=== PATIENT | male | born 1945 | race Caucasian/White ===

== ENCOUNTER 2019-04-13 11:00 | Outpatient (RCR) | payer SELFPAY | END 2019-05-13 00:01 | LOC: CR 11:00 | PROVIDERS: Family Provider Family Medicine; Referring Provider Internal Medicine Cardiovascular Disease; Visit Provider Internal Medicine Cardiovascular Disease | DX: Z48.812 Encounter for surgical aftercare following surgery on the circulatory system (principal); Z95.2 Presence of prosthetic heart valve ==

== ENCOUNTER 2019-05-21 11:42 | Outpatient (RCR) | payer SELFPAY | END 2019-06-13 23:59 | disposition home or self-care (01) | LOC: CR 11:42 | PROVIDERS: Family Provider Family Medicine; PCP Family Medicine; Referring Provider Internal Medicine Cardiovascular Disease; Visit Provider Internal Medicine Cardiovascular Disease | DX: Z95.2 Presence of prosthetic heart valve (principal) ==

== ENCOUNTER 2019-06-16 13:48 | Outpatient (RCR) | payer SELFPAY | END 2019-07-12 23:59 | disposition home or self-care (01) | LOC: CR 13:48 | PROVIDERS: Family Provider Family Medicine; PCP Family Medicine; Referring Provider Internal Medicine Cardiovascular Disease; Visit Provider Internal Medicine Cardiovascular Disease | DX: Z95.2 Presence of prosthetic heart valve (principal) ==

== ENCOUNTER 2019-07-14 13:03 | Outpatient (RCR) | payer SELFPAY | END 2019-08-12 23:59 | disposition home or self-care (01) | LOC: CR 13:03 | PROVIDERS: Family Provider Family Medicine; PCP Family Medicine; Referring Provider Internal Medicine Cardiovascular Disease; Visit Provider Internal Medicine Cardiovascular Disease | DX: Z95.2 Presence of prosthetic heart valve (principal) ==

== ENCOUNTER 2020-03-23 13:11 | Outpatient (CLI) | payer MEDICARE, BC, SELFPAY ==
--- NOTE | 2020-03-23 13:30 | USCV_ITS ---
Morris Sandoval Age: 75 Gender: M : 1945 Exam Date: 03/23/2020 13:49 Ordering Phys: Lane Hauser MD ([email or web address]) Technologist: Nicholas Lopez Exam Location: [facility] [place] Indication: CCA DIESE Risk Factors: Previous Vascular Surgery: Right Brachial BP: / Left Brachial BP: / Right Left Velocity (cm/s) Spectral Plaque Velocity (cm/s) Spectral Plaque Syst/Diast Broadening Syst/Diast Broadening 84.90/ 20.90 Prox CCA 93.30 / 14.50 81.60/ 17.60 Hetro Mid CCA 88.10 / 18.40 75.00/ 19.80 Hetro Distal CCA 89.40 / 17.10 Hetro 249.00/70.80 Hetro Prox ICA 82.70 / 20.90 Hetro 249.00/63.50 Mid ICA 88.20 / 22.10 Hetro 227.10/73.20 Distal ICA 87.10 / 28.70 86.00 ECA 152.90 2.93 ICA/CCA 0.95 Antegrade Vertebral Antegrade 76.20/ 26.30 cm/s 71.70/ 16.50 cm/s Bi Subclavian Bi 48.60 87.10 FINDINGS Moderate to heavy heterogeneous plaques at the right bifurcation and internal carotid artery. Mild to moderate heterogeneous plaques of the left bifurcation and internal carotid artery Intimal thickening and minimal plaques in the common carotid arteries bilaterally Antegrade flow in the vertebral arteries bilaterally Elevated Doppler flow velocity in the left external carotid artery CONCLUSIONS Moderate to heavy heterogeneous plaques at the right bifurcation and internal carotid artery with velocity elevation consistent with 50-79% (possibly greater than 70% )stenosis. Mild to moderate heterogeneous plaques of the left bifurcation and internal carotid artery. Elevated velocity in the external carotid artery on the left side, suggestive of hemodynamically significant stenosis. Compared to the study from 09/25/2018, there is some worsening of the stenosis on the right side Dr Lane Hauser MD [facility] (Electronically Signed) Final Date: 25 March 2020 18:58 S
== END 2020-03-23 13:12 | disposition home or self-care (01) ==
LOC: US 13:12
PROVIDERS: PCP Family Medicine; Visit Provider Internal Medicine Cardiovascular Disease
DX: I65.23 Occlusion and stenosis of bilateral carotid arteries (principal); Z20.828 Contact with and (suspected) exposure to other viral communicable diseases; R43.0 Anosmia; J06.9 Acute upper respiratory infection, unspecified
CPT/HCPCS: 87635; 93880

== ENCOUNTER 2020-04-19 12:23 | Outpatient (CLI) | payer MEDICARE, BC, SELFPAY ==
--- NOTE | 2020-04-19 13:00 | CT_ITS ---
WS: [id number] CTA NECK TECHNIQUE: Contrast enhanced CTA of the neck with coronal and sagittal reformatted images and maximum intensity projection (MIP) images. NASCET criteria utilized. CLINICAL INFORMATION: I25.10 - Atherosclerotic heart disease of [place] coronary artery without angina pectoris COMPARISON: None. DLP: 912.[address] scans at [facility] use at least one of these dose optimization techniques: automat ed exposure control; mA and/or kV adjustment per patient size (includes targeted exams where dose is matched to clinical indication); or iterative reconstruction. FINDINGS: Fibrosis in the lung apices. Mild mucosal thickening in the ethmoid air cells and frontal e thmoidal recess. No cervical lymphadenopathy. Moderate spondylitic changes cervical spine. Sternotomy . Fibrosis in the lung apices. RIGHT: Right common carotid artery is patent. Calcified atheromatous disease right carotid bulb exten ding into the ICA with stenosis measuring approximately 45%. Right ICA is patent to the skull base. LEFT: Left common carotid artery is patent. Calcified atheromatous plaque left carotid bulb extending into the ICA. Left ICA is patent to the skull base. No significant left ICA stenosis. Right dominant vertebral artery. Both vertebral arteries are patent. Proximal basilar artery is paten t. Partially visualized intracranial [place] is patent. CT/CT angio neck [id number] IMPRESSION: 1. Stenosis right proximal ICA measuring approximately 45%. 2. No significant left ICA stenosis. 3. Right dominant vertebral artery. Both vertebral arteries are patent. 4. Partially visualized intracranial [place] is patent.
[2020-04-19 13:12] LABS: Blood Urea Nitrogen 20 mg/dL (8-23)
[2020-04-19] MEDS: iohexol 350 mg/mL 100 mL Btl IV (13:29)
== END 2020-04-19 12:24 | disposition home or self-care (01) ==
LOC: RADWPI 12:29
PROVIDERS: PCP Family Medicine; Visit Provider Internal Medicine Cardiovascular Disease
DX: I25.10 Atherosclerotic heart disease of native coronary artery without angina pectoris (principal); I50.22 Chronic systolic (congestive) heart failure; I65.23 Occlusion and stenosis of bilateral carotid arteries; Z95.2 Presence of prosthetic heart valve
CPT/HCPCS: 70498; 82565; 84520; Q9967

== ENCOUNTER 2020-09-22 07:54 | Outpatient (CLI) | payer MEDICARE, BC, SELFPAY ==
--- NOTE | 2020-09-22 08:00 | USCV_ITS ---
Morris Sandoval Age: 75 Gender: M : 1945 Exam Date: 09/22/2020 08:17 Ordering Phys: Lane Hauser MD ([email or web address]) Technologist: YANET [place] [facility] [place]: Presence of prosthetic heart valve BP: 110 / 65 HR: 56 Rhythm: Sinus Technical Quality: Very technically difficult study MEASUREMENTS (Male / Female) Normal Values 2D ECHO LV Diastolic Diameter PLAX 4.3 cm 4.2 - 5.9 / 3.9 - 5.3 cm LV Systolic Diameter PLAX 3.1 cm LV Chamber Size 4.5 cm IVS Diastolic Thickness 1.7 cm 0.6 - 1.0 / 0.6 - 0.9 cm IVS Systolic Thickness 2.5 cm LVPW Diastolic Thickness 1.2 cm 0.6 - 1.0 / 0.6 - 0.9 cm LVPW Systolic Thickness 1.2 cm RV Chamber Size 2.8 cm LVOT Diameter 1.8 cm LV Ejection Fraction 2D Teich 55.3 % LA Width 3.5 cm LA Height 5.1 cm RA Width 2.6 cm RA Height 4.2 cm M-MODE LV Diastolic Diameter MM 5.3 cm 4.2 - 5.9 / 3.9 - 5.3 cm LV Systolic Diameter MM 4.3 cm LV Ejection Fraction MM Teich 40.3 % IVS Diastolic Thickness MM 1.9 cm 0.6 - 1.0 / 0.6 - 0.9 cm IVS Systolic Thickness MM 2.0 cm LVPW Diastolic Thickness MM 1.9 cm 0.6 - 1.0 / 0.6 - 0.9 cm LVPW Systolic Thickness MM 2.2 cm MV E Point Septal Separation 0.2 cm DOPPLER AV Peak Velocity 210.3 cm/s LVOT Peak Velocity 116.0 cm/s AV Area Cont Eq vti 1.3 cm squared AV Area Cont Eq pk 1.4 cm squared MV Area PHT 3.5 cm squared Mitral E to A Ratio 2.0 MV E' Velocity 74.0 cm/s Mitral E to MV E' Ratio 18.1 Mitral E to LV E' Lateral Ratio 14.2 Mitral E to LV E' Septal Ratio 25.0 TR Peak Velocity 256.3 cm/s TR Peak Gradient 26.3 mmHg TR Mean Velocity 211.6 cm/s TR Mean Gradient 18.8 mmHg TR Velocity Time Integral 94.3 cm TV Peak E Velocity 62.0 cm/s Right Atrial Pressure 8.0 mmHg Pulmonary Artery Systolic Pressu 34.3 mmHg FINDINGS Left Ventricle Normal LV size with a diminished ejection fraction of 40 to 45%. Diffuse hypokinesia of the septum and anteroseptal segments.Grade III/IV diastolic dysfunction (restrictive filling pattern), severely elevated filling pressures. Right Ventricle The right ventricle is normal in size and function. Right Atrium The right atrium is normal in size. Left Atrium Mildly increased left atrial size. Mitral Valve Thickened mitral valve. Mild mitral annular calcification. Mild mitral valve regurgitation. Aortic Valve Thickened aortic valve. Tricuspid Valve Mild tricuspid regurgitation Pulmonic Valve No gross abnormalities noted Pericardium Normal pericardium without effusion. Aorta Normal ascending aorta dimension. CONCLUSIONS Normal LV size with a diminished ejection fraction of 40 to 45%. Diffuse hypokinesia of the septum and anteroseptal segments.Grade III/IV diastolic dysfunction (restrictive filling pattern), severely elevated filling pressures. Thickened mitral valve. Mild mitral annular calcification. Mild mitral valve regurgitation. Thickened aortic valve. Mild tricuspid regurgitation. Estimated pulmonary artery peak systolic pressure was 31 mmHg There is no pericardial effusion. There are no intracardiac masses. Compared to the study from 06/27/2018, there is some worsening of the LV ejection fraction from 50% to 40- 45%. Dr Lane Hauser MD [facility] (Electronically Signed) Final Date: 22 Sep 2020 10:22 S
== END 2020-09-22 07:55 | disposition home or self-care (01) ==
LOC: US 07:57
PROVIDERS: PCP Family Medicine; Visit Provider Internal Medicine Cardiovascular Disease
DX: Z95.2 Presence of prosthetic heart valve (principal); I08.3 Combined rheumatic disorders of mitral, aortic and tricuspid valves
CPT/HCPCS: 93306

== ENCOUNTER 2020-11-05 06:51 | Outpatient (CLI) | payer MEDICARE, BC, SELFPAY ==
[2020-11-05 07:31] VITALS: BMI 24.3
--- NOTE | 2020-11-05 08:15 | NMCV_ITS ---
NM elan perf SPECT r/s* [id number] Morris Sandoval Age: 75 Gender: M : 1945 Exam Date: 11/05/2020 08:14 Ordering Phys: Lane Hauser MD ([email or web address]) Technologist: CARMEN Renteria Exam Location: [facility] Indications: CHF STRESS TEST Please see separate stress test report in [facility] for full findings IMAGE PROTOCOL Rest/Stress 1 Lexiscan Day Radiopharmaceutical Dose (mCi) Administration Site Administered by Rest: Tc-99m 10.4 IV CARMEN Bill Sestamibi Stress:Tc-99m 32.5 IV CARMEN Bill Sestamijasper Rest: 05-Nov-2020 60 Discovery 630 Stress: 05-Nov-2020 30 Discovery 630 0.4mg Lexiscan. Images obtained in supine and prone position. SPECT RESULTS Technical Quality: Excellent Raw Data Analysis: Normal Image Corrections: No attenuation or motion correction applied Summed Stress Score: 0 Summed Rest Score: 0 Summed Difference Score: 0 PERFUSION FINDINGS Fairly uniform myocardial tracer uptake FUNCTIONAL RESULTS (calculated via Gated SPECT) Stress Image LV EF (%): 72 Stress EDV (mL):94 TID: 1.07 Stress ESV (mL):26 FUNCTIONAL FINDINGS: Segmental wall motion analysis revealing diffuse hypokinesia of the septum IMPRESSIONS 1. Unremarkable myocardial perfusion imaging. 2. Normal LV ejection fraction of 72%. 3. Segmental wall motion analysis revealing diffuse hypokinesia of the septum. 4. Normal LV volume No significant coronary ischemia, based on the above findings Dr Lane Hauser MD [facility] (Electronically Signed) Final Date: 05 November 2020 11:06 S
--- NOTE | 2020-11-05 08:15 | ECG_ITS ---
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 Interpretive Statements NAME OF STUDY: LEXISCAN SESTAMIBI STRESS TEST INDICATION: Chest Pain, PROCEDURE: At the baseline, the EKG revealed sinus bradycardia with a heart rate of 57 bpm. The baseline blood pressure was 146/75 mm Hg with a heart rate of 57 beats/min. Lexiscan was infused over a period of 20 seconds. A total of 0.4 milligrams of Lexiscan was infused. The stress phase was continued for a total of 5 minutes. Heart rate at the end of the stress phase was 68 with a blood pressure 129/72. The EKG at the peak infusion revealed no significant changes. Occasional PVCs were noted during the infusion Sestamibi was injected 20 seconds after the Lexiscan infusion. Blood pressure at the end of the recovery phase was 140/57 with a heart rate of 67 per minute. CONCLUSION: 1. No significant EKG changes with the LexiScan infusion 2. No LexiScan induced chest pain or cardiac arrhythmia 3. Normal blood pressure and heart rate response 4. Sestamibi/sestamibi perfusion scan pending; see separate report. Electronically Signed On 11-05-2020 10:05:[address] Hauser M.D. [id number]
[2020-11-05] MEDS: regadenoson 0.4 Mg/5 ml Syringe IVP (08:50)
[2020-11-05 08:51] VITALS: BP 129/77; PULSE 65
== END 2020-11-05 06:52 | disposition home or self-care (01) ==
LOC: CDL 06:52
PROVIDERS: PCP Family Medicine; Visit Provider Internal Medicine Cardiovascular Disease
DX: R07.9 Chest pain, unspecified (principal); I50.9 Heart failure, unspecified
CPT/HCPCS: 78452; 93017; A9500; J2785

== ENCOUNTER 2020-11-08 10:35 | Outpatient (CLI) | payer MEDICARE, BC, SELFPAY ==
--- NOTE | 2020-11-08 11:00 | USCV_ITS ---
Morris Sandoval Age: 75 Gender: M : 1945 Exam Date: 11/08/2020 11:03 Ordering Phys: Lane Hauser MD ([email or web address]) Technologist: Lona Arroyo Exam Location: [facility] [place] Indication: OCCLUSION AND STENOSIS OF BILATERAL CAROTID ARTERIES Risk Factors: Previous Vascular Surgery: Right Brachial BP: / Left Brachial BP: / Right Left Velocity (cm/s) Spectral Plaque Velocity (cm/s) Spectral Plaque Syst/Diast Broadening Syst/Diast Broadening 86.30/ 18.80 Prox CCA 107.20/ 16.60 87.10/ 19.80 Mid CCA 99.50 / 16.10 88.20/ 18.70 Distal CCA 80.30 / 10.70 186.20/46.75 Prox ICA 61.10 / 13.80 170.70/48.30 Mid ICA 78.90 / 18.70 176.40/45.40 Distal ICA 85.10 / 28.70 72.30 ECA 145.00 2.15 ICA/CCA 0.85 Antegrade Vertebral Antegrade 38.95/ 11.20 cm/s 42.10/ 11.60 cm/s Bi Subclavian Bi 83.70 83.30 FINDINGS Moderate to heavy heterogeneous irregular plaques at the right bifurcation and internal carotid artery Moderate heterogeneous plaques of the left bifurcation and proximal internal carotid artery. Antegrade flow in the vertebral arteries bilaterally. Normal Doppler velocities in the subclavian arteries bilaterally CONCLUSIONS Moderate to heavy heterogeneous irregular plaques at the right bifurcation and internal carotid artery with Doppler features, consistent with 50 to 69% stenosis. Moderate heterogeneous plaques of the left bifurcation and proximal internal carotid artery with Doppler features consistent with less than 50% stenosis. Compared to the study from 03/23/2020, there may not be a significant change Dr Lane Hauser MD [facility] (Electronically Signed) Final Date: 09 November 2020 19:39 S
== END 2020-11-08 10:36 | disposition home or self-care (01) ==
LOC: US 10:36
PROVIDERS: PCP Family Medicine; Visit Provider Internal Medicine Cardiovascular Disease
DX: I65.23 Occlusion and stenosis of bilateral carotid arteries (principal)
CPT/HCPCS: 93880

== ENCOUNTER → 2021-09-07 14:52 | Outpatient (BNVA) | payer MEDICARE, BC, SELFPAY | PROVIDERS: PCP Family Medicine; Visit Provider Internal Medicine Cardiovascular Disease | DX: I25.10 Atherosclerotic heart disease of native coronary artery without angina pectoris (principal); I11.0 Hypertensive heart disease with heart failure; I50.22 Chronic systolic (congestive) heart failure; E78.5 Hyperlipidemia, unspecified; Z95.2 Presence of prosthetic heart valve; I65.23 Occlusion and stenosis of bilateral carotid arteries; Z95.1 Presence of aortocoronary bypass graft; Z87.891 Personal history of nicotine dependence | CPT/HCPCS: 99213; 99214 ==

== ENCOUNTER 2022-02-08 19:03 | Inpatient (IN) | payer MEDICARE, BC, SELFPAY ==
--- NOTE | 2022-02-08 19:07 | XRR_ITS ---
PROCEDURE INFORMATION: Exam: XR Chest Exam date and time: 02/08/2022 7:35 PM Age: 76 years old Clinical indication: Shortness of breath; Prior surgery; Surgery date: 6+ months; Surgery type: Open heart; Additional info: SOB TECHNIQUE: Imaging protocol: Radiologic exam of the chest. Views: 1 view. COMPARISON: CT chest w con* [id number] 02/26/2019 2:25 PM FINDINGS: Lungs: Stable mild hyperinflation of the lungs. No focal consolidation. No pulmonary edema. Pleural spaces: Stable calcified pleural plaques in the right hemithorax. No pleural effusion. No pneumothorax. Heart/Mediastinum: Stable mild enlargement of the cardiac silhouette. Mediastinal contours are unremarkable. Vasculature: Stable vascular calcifications in the aorta. Bones/joints: Poststernotomy changes in the chest. Degenerative changes in the spine and shoulders. Bones are diffusely osteopenic. Osseous findings are stable. XR/XR chest 1V portable [id number] IMPRESSION: 1. No acute cardiopulmonary process. 2. Incidental/nonacute findings are listed in the report.
[2022-02-08 19:08] VITALS: BP 124/71; PULSE 95; RESP 24; TEMP 38.8; O2SAT 95; BMI 23.6
--- NOTE | 2022-02-08 19:14 | ECG_ITS ---
[facility] Test Date: 2022-02-08 Pat Name: Morris Sandoval Department: Room: Gender: Male Lpc: : 1945 Requested By: Sasha Ruiz Order Number: [id number] Costa MD: Michael Swanson M.D. Measurements Intervals [place] Rate: 95 P: 88 MA: 152 QRS: 62 QRSD: 86 T: 50 QT: 326 QTc: 410 Interpretive Statements SINUS RHYTHM NONSPECIFIC T-WAVE ABNORMALITY Compared to ECG 01/09/2018 11:51:56 T-wave abnormality now present Sinus bradycardia no longer present Electronically Signed On 02-09-2022 8:53:46 CDT by Michael Swanson M.D. [id number] f
--- NOTE | 2022-02-08 19:25 | W.ED.SOB ---
HPI - SOB/Dyspnea General: Chief Complaint: Shortness of Breath/Dyspnea Stated Complaint: N/V/Fever Time Seen by Provider: 02/08/22 19:04 Source: patient and EMS Mode of arrival: EMS Limitations: no limitations History of Present Illness: HPI Narrative: 76-year-old male states tonight he is having a fever he is febrile here 102 states he also had nausea along with abdominal pain has had a cough with some mild dyspnea. Patient is in no respiratory distress here pulse ox is 98% on room air. Denies any worsening improving factors. Associated symptoms: Reports abdominal pain and fever(s); Deny chest pain Review of Systems Const: Reports: fever(s) and body aches Eyes: Denies: blurry vision or eye discomfort ENMT: Denies: throat pain or dental pain Card: Denies: chest pain Resp: Reports: non-productive cough GI: Reports: abdominal pain : Denies: dysuria Musc: Denies: neck pain or back pain Skin/Breast: Denies: rash Neuro: Denies: headache(s) Psych: Denies: depression [place]/Lymph: Denies: easy bruising All/Imm: Denies: urticaria PFSH ED PFSH: Medical History Atherosclerotic heart disease of [place] coronary artery without angina pectoris Bilateral carotid artery stenosis Chronic systolic heart failure Congestive heart failure Dyslipidemia (high LDL; low HDL) Hypertension Peripheral neuropathy Surgical History Aortic valve replaced History of cataract extraction Hx of CABG Family History Father CAD (coronary artery disease) Diabetes Sister Cancer Chronic kidney disease (CKD) Diabetes Lung disease Brother Diabetes Mother Lung disease Other Hyperlipidemia Hypertension Denies family history of Clotting disorder Dementia Suicide Anesthesia complication Bleeding disorder Stroke Social History Smoking and tobacco status: former smoker Alcohol intake: never Physical Exam Const: COMMON NORMALS: patient oriented x3 HENMT: COMMON NORMALS: normocephalic and atraumatic HEAD & SCALP: normocephalic and atraumatic Eye: COMMON NORMALS: Equal, round and reactive pupils present and EOMs intact bilaterally PUPIL: Yes Equal, round and reactive pupils present Neck/C-Spine: COMMON NORMALS: full ROM and supple Chest: COMMONS NORMALS: normal inspection of the chest and normal palpation of entire chest wall Resp: COMMON NORMALS: normal respiratory effort, No retractions, No use of accessory muscles and clear to auscultation bilaterally AUSCULTATION: clear to auscultation bilaterally Cardio: COMMON NORMALS: regular rate, regular rhythm and No murmurs present (Cardio) RATE: regular rate RHYTHM: regular rhythm GI: COMMON NORMALS: Normal to inspection, nondistended, normoactive bowel sounds present, Soft to palpation, non-tender and no masses PALPATION: Yes Soft to palpation Extremity: COMMON NORMALS: normal to inspection and full ROM Neuro: COMMON NORMALS: patient oriented x3, moves all extremities and no focal motor deficits Psych: COMMON NORMALS: mental status grossly normal, Normal thought process present and cooperative THOUGHT PROCESS: Normal thought process present Skin: COMMON NORMALS: no rashes or lesions noted and no wounds GENERAL SKIN EXAM: no rashes or lesions noted Course Vital Signs: Vital signs: Vital Signs Temperature 102 F H 02/08/22 19:08 Pulse Rate 95 02/08/22 19:08 Respiratory Rate 24 H 02/08/22 19:08 Blood Pressure 124/71 02/08/22 19:08 Pulse Oximetry 95 02/08/22 19:08 Oxygen Delivery Me thod 02/08/22 19:08 MDM - SOB/Dyspnea Medical Decision Making Patient presents here with fever he does have a leukocytosis as well. CT scan showed no acute abnormalities his lactate is normal urinalysis is normal COVID was negative we will send off a COVID PCR will admit at this time due to his leukocytosis and fever on IV antibiotics to follow blood cultures spoke to hospitalist Dr. Banuelos who will admit. Lab Data : 02/08/22 19:48 02/08/22 19:48 Labs/Radiology: Radiology Impressions Chest X-Ray 02/08/22 19:07 IMPRESSION: 1. No acute cardiopulmonary process. 2. Incidental/nonacute findings are listed in the report. Chest/Abdomen/Pelvis CT 02/08/22 20:26 IMPRESSION: 1. No acute cardiopulmonary process. 2. The patient has a prosthetic aortic valve and ascending aortic graft, stable in position. 3. Incidental/nonacute findings are listed in the report. IMPRESSION: 1. Diffuse, moderate wall thickening of the bladder. In the correct clinical setting, this may suggest cystitis. Recommend correlation with laboratory findings. Alternatively, this may be secondary to chronic outlet obstruction. 2. Incidental/nonacute findings are listed in the report. Laboratory Results WBC 20.4 10^3/uL (4.0-10.0) H 02/08/22 19:48 RBC 4.19 10^6/uL (4.1-5.3) 02/08/22 19:48 Hgb 13.4 g/dL (11.7-16.6) 02/08/22 19:48 Hct 39.9 % (42.0-52.0) L 02/08/22 19:48 MCV 95.2 fl (80-94) H 02/08/22 19:48 MCH 32.0 pg (28.0-34.0) 02/08/22 19:48 MCHC 33.6 g/dL (30.0-36.0) 02/08/22 19:48 RDW 13.2 % (12.1-15.1) 02/08/22 19:48 Plt Count 204 10^3/cmm (130-400) 02/08/22 19:48 MPV 10.0 fL (7.4-10.4) 02/08/22 19:48 Neut % (Auto) 89.3 % 02/08/22 19:48 Lymph % (Auto) 3.4 % 02/08/22 19:48 [place]ison % (Auto) 6.3 % 02/08/22 19:48 Eos % (Auto) 0.4 % 02/08/22 19:48 Baso % (Auto) 0.2 % 02/08/22 19:48 Neut # (Auto) 18.16 10^3/uL (1.8-7.7) H 02/08/22 19:48 Lymph # (Auto) 0.7 10^3/uL (0.8-4.8) L 02/08/22 19:48 Addison # (Auto) 1.3 10^3/uL (0.2-0.9) H 02/08/22 19:48 Eos # (Auto) 0.1 10^3/uL (0.0-0.8) 02/08/22 19:48 Baso # (Auto) 0.1 10^3/uL (0.0-0.1) 02/08/22 19:48 Nucleated RBC % (auto) 0 % 02/08/22 19:48 Nucleated RBCs # 0.0 /100WBC 02/08/22 19:48 Sodium 136 mmol/L (136-145) 02/08/22 19:48 Potassium 4.3 mmol/L (3.5-5.1) 02/08/22 19:48 Chloride 96 mmol/L (98-107) L 02/08/22 19:48 Carbon Dioxide 28 mmol/L (22-29) 02/08/22 19:48 Anion Gap 16.3 (5-19) 02/08/22 19:48 BUN 24 mg/dL (8-23) H 02/08/22 19:48 Creatinine 0.9 mg/dL (0.7-1.2) 02/08/22 19:48 GFR Calculation Not Reportable 02/08/22 19:48 Glucose 128 mg/dL (65-115) H 02/08/22 19:48 Calculated Osmolality 288 mOsm/kg (285-295) 02/08/22 19:48 Lactate 1.4 mmol/L (0.5-2.2) 02/08/22 19:48 Calcium 9.4 mg/dL (8.5-10.5) 02/08/22 19:48 Total Bilirubin 0.3 mg/dL (0.15-1.2) 02/08/22 19:48 AST 25 U/L (0-40) 02/08/22 19:48 ALT 20 U/L (0-41) 02/08/22 19:48 Alkaline Phosphatase 106 U/L (40-130) 02/08/22 19:48 NT-Pro-B Natriuret Pep 406 pg/mL (0-450) 02/08/22 19:48 Total Protein 7.6 g/dL (6.6-8.7) 02/08/22 19:48 Albumin 4.3 g/dL (3.5-5.2) 02/08/22 19:48 Globulin 3.3 g/dL (1.3-4.6) 02/08/22 19:48 Lipase 24 U/L (13-60) 02/08/22 19:48 Urine Color Yellow (Yellow) 02/08/22 20:05 Urine Appearance Clear (CLEAR) 02/08/22 20:05 Urine pH 5.5 (5-7) 02/08/22 20:05 Ur Specific [place] 1.020 (1.005-1.030) 02/08/22 20:05 Urine Protein Negative 02/08/22 20:05 Urine Glucose (UA) Negative (Normal) 02/08/22 20:05 Urine Ketones Negative (Negative) 02/08/22 20:05 Urine Blood Negative (Negative) 02/08/22 20:05 Urine Nitrate Negative 02/08/22 20:05 Urine Bilirubin Negative (Negative) 02/08/22 20:05 Urine Urobilinogen 0.2 mg/dL (Negative) 02/08/22 20:05 Ur Leukocyte Esterase Negative 02/08/22 20:05 SARS-CoV-2 Ag (Rapid) Negative (Negative) 02/08/22 19:07 EKG Data EKG 1: I personally reviewed and interpreted this EKG as follows: EKG Interpretation Date: 02/08/22 EKG interpretation time: 19:14 Interpretation: nsr hr [address] or t wave abnormalities qrs 86 qtc 378 Discharge Plan Discharge Condition: Stable Prescriptions: No Action silodosin [Rapaflo] 8 mg capsule 8 mg PO BEDTIME nitroglycerin [Nitrostat] 0.4 mg tablet, sublingual 0.4 mg SUBLINGUAL Q5M PRN (Reason: Chest Pain) trazodone 100 mg tablet 100 mg PO BEDTIME omeprazole 20 mg capsule,delayed release(DR/EC) 20 mg PO DAILY losartan 100 mg tablet 100 mg PO DAILY furosemide 40 mg tablet 40 mg PO DAILY PRN (Reason: Edema) gabapentin 300 mg capsule 300 mg PO TID potassium chloride 20 mEq tablet,ER particles/crystals 10 meq PO DAILY metoprolol tartrate 50 mg tablet 50 mg PO BID clopidogrel 75 mg tablet 75 mg PO DAILY Qty: 90 3RF atorvastatin 40 mg tablet 40 mg PO BEDTIME cyclobenzaprine 10 mg tablet 10 mg PO DAILY PRN (Reason: Muscle Spasm) ipratropium bromide 21 mcg (0.03 %) spray,non-aerosol 2 spray INTRANASAL TID PRN (Reason: Nasal Congestion) Referrals: Darleen Pina MD [Primary Care Provider] - Coding Level of Care Code 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
[2022-02-08] MEDS: lactated ringers 1,000 ML 999 ML IV ×2 (19:48→21:03)
[2022-02-08 19:52] LABS: SARS Covid-2 Antigen Negative (Negative)
[2022-02-08 20:05] LABS: Basophils # 0.1 10^3/uL (0.0-0.1); Basophils % 0.2 %; Eosinophils # 0.1 10^3/uL (0.0-0.8); Eosinophils % 0.4 %; Hematocrit 39.9 % (42.0-52.0); Hemoglobin 13.4 g/dL (11.7-16.6); Lymphocytes # 0.7 10^3/uL (0.8-4.8); Lymphocytes % 3.4 %; Mean Corpuscular HGB Conc 33.6 g/dL (30.0-36.0); Mean Corpuscular Volume 95.2 fl (80-94); Monocytes # 1.3 10^3/uL (0.2-0.9); Monocytes % 6.3 %; Neutrophils # 18.16 10^3/uL (1.8-7.7); Neutrophils % 89.3 %; Nucleated Red Blood Cells % 0 %; Platelet Count 204 10^3/cmm (130-400); Red Blood Count 4.19 10^6/uL (4.1-5.3); Red Cell Distribution Width 13.2 % (12.1-15.1); White Blood Count 20.4 10^3/uL (4.0-10.0)
--- NOTE | 2022-02-08 20:21 | PC.PHAR ---
medications verified by external med list last filled
[2022-02-08 20:24] LABS: Lactate (Lactic Acid level) 1.4 mmol/L (0.5-2.2)
--- NOTE | 2022-02-08 20:26 | CTR_ITS ---
PROCEDURE INFORMATION: Exam: CT Chest Without Contrast; Diagnostic Exam date and time: 02/08/2022 8:34 PM Age: 76 years old Clinical indication: Fever and nausea; Abdominal pain; Generalized; Cough and dyspnea; Chest pressure; Prior surgery; Surgery date: 6+ months; Surgery type: Cabg, aortic valve replacment; Patient HX: Cough, shob, abd pain, fever, nausea. HX cabg, aortic valve replacement. Ex smoker, no HX of CA TECHNIQUE: Imaging protocol: Diagnostic computed tomography of the chest without contrast. Sagittal and coronal reformatted images were created and reviewed. Radiation optimization: All CT scans at this facility use at least one of these dose optimization techniques: automated exposure control; mA and/or kV adjustment per patient size (includes targeted exams where dose is matched to clinical indication); or iterative reconstruction. COMPARISON: CT chest w con* [id number] 02/26/2019 2:25 PM RADIATION DOSE METRICS: Total DLP (mGy-cm): 587.85 FINDINGS: Limitations: Evaluation of the mediastinum and vasculature is limited without intravenous contrast. Trachea: Tracheobronchial structures are patent. Lungs: Stable linear scarring in the right and left lower lobes. No focal consolidation. No pulmonary edema. No pulmonary parenchymal nodules or masses. Pleural spaces: Bilateral apical pleural thickening and pleural thickening along the posterior left hemithorax is stable. No pleural effusion. No pneumothorax. Few right-sided calcified pleural plaques are stable, this may represent sequela of remote infection versus asbestos related pleural disease. Heart: The patient has a prosthetic aortic valve and ascending aortic graft, stable in position. Stable mild enlargement of the heart. Stable moderate atherosclerotic calcification in the coronary arteries. Esophagus: The esophagus is unremarkable. Mediastinal space: No mediastinal hematoma. No pneumomediastinum. Lymph nodes: No lymphadenopathy. Vasculature: No evidence for aortic aneurysm. Stable mild atherosclerotic calcifications in the visualized arteries. Pulmonary arteries are unremarkable. Pulmonary veins are unremarkable. Bones/joints: Poststernotomy changes in the chest. Degenerative changes in the spine and shoulders. Bones are diffusely osteopenic. Osseous findings are stable. Soft tissues: No acute abnormality in the extrathoracic soft tissues. PROCEDURE INFORMATION: Exam: CT Abdomen And Pelvis Without Contrast Exam date and time: 02/08/2022 8:34 PM Age: 76 years old Clinical indication: Fever and nausea; Abdominal pain; Generalized; Cough and dyspnea; Chest pressure; Prior surgery; Surgery date: 6+ months; Surgery type: Cabg, aortic valve replacment; Patient HX: Cough, shob, abd pain, fever, nausea. HX cabg, aortic valve replacement. Ex smoker, no HX of CA TECHNIQUE: Imaging protocol: Computed tomography of the abdomen and pelvis without contrast. Sagittal and coronal reformatted images were created and reviewed. Radiation optimization: All CT scans at this facility use at least one of these dose optimization techniques: automated exposure control; mA and/or kV adjustment per patient size (includes targeted exams where dose is matched to clinical indication); or iterative reconstruction. COMPARISON: CT chest w con* [id number] 02/26/2019 2:25 PM RADIATION DOSE METRICS: Total DLP (mGy-cm): 587.85 FINDINGS: Limitations: Evaluation of solid organs and vasculature is limited without intravenous contrast. Liver: The liver is unremarkable. Gallbladder and bile ducts: The gallbladder is unremarkable. No biliary ductal dilatation. Pancreas: The pancreas is unremarkable. No pancreatic ductal dilatation. Spleen: Multiple calcified granulomas in the spleen. Adrenal glands: The right and left adrenal glands are unremarkable. Kidneys and ureters: The right and left kidneys are unremarkable. The right and left ureters are unremarkable. Stomach and bowel: No obstruction. No mucosal thickening. Appendix: The appendix is visualized and is unremarkable. No findings to suggest acute appendicitis. Intraperitoneal space: No free intraperitoneal air. No ascites. No loculated fluid collections to suggest an abscess. Vasculature: Moderate atherosclerotic changes in the visualized arteries. No evidence for aortic aneurysm. Lymph nodes: No lymphadenopathy. Urinary bladder: Diffuse, moderate wall thickening of the bladder. Reproductive: Nonspecific parenchymal calcifications in the prostate gland. Bones/joints: Bones are diffusely osteopenic. Moderate degenerative changes at both the right and left hips. Moderate degenerative changes of the right and left sacroiliac joints. Multilevel degenerative changes of varying severity in the visualized spine. Mild spinal canal stenosis at L2-L3, L3-L4, L4-L5, and moderate spinal canal stenosis at L5-S1. Multilevel foraminal stenosis of varying severity in the lumbar spine. Soft tissues: No acute abnormality in the extra-abdominal soft tissues. CT/[place] [id number] IMPRESSION: 1. No acute cardiopulmonary process. 2. The patient has a prosthetic aortic valve and ascending aortic graft, stable in position. 3. Incidental/nonacute findings are listed in the report. IMPRESSION: 1. Diffuse, moderate wall thickening of the bladder. In the correct clinical setting, this may suggest cystitis. Recommend correlation with laboratory findings. Alternatively, this may be secondary to chronic outlet obstruction. 2. Incidental/nonacute findings are listed in the report.
[2022-02-08 20:29] LABS: Add Urine Microscopic? NO; Charge for UA Resulting for Rev
[2022-02-08 20:30] LABS: Bilirubin Urine Negative (Negative); Blood Urine Negative (Negative); Glucose Urine UA Negative (Normal); Ketones Urine Negative (Negative); Leukocyte Esterase Urine Negative; Nitrate Urine Negative; Protein Urine Negative; Urine Appearance Clear (CLEAR); Urine Color Yellow (Yellow); Urobilinogen Urine 0.2 mg/dL (Negative); pH Urine 5.5 (5-7)
[2022-02-08 20:33] LABS: Alanine Aminotransferase 20 U/L (0-41); Albumin Level 4.3 g/dL (3.5-5.2); Alkaline Phosphatase 106 U/L (40-130); Anion Gap 16.3 (5-19); Aspartate Amino Transferase 25 U/L (0-40); Blood Urea Nitrogen 24 mg/dL (8-23); Calcium 9.4 mg/dL (8.5-10.5); Carbon Dioxide 28 mmol/L (22-29); Chloride 96 mmol/L (98-107); Globulin 3.3 g/dL (1.3-4.6); Glucose 128 mg/dL (65-115); Lipase 24 U/L (13-60); NT Pro B Type Natriuretic Pept 406 pg/mL (0-450); Osmolality Calculated 288 mOsm/kg (285-295); Potassium 4.3 mmol/L (3.5-5.1); Sodium 136 mmol/L (136-145); Total Bilirubin 0.3 mg/dL (0.15-1.2); Total Protein 7.6 g/dL (6.6-8.7)
[2022-02-08] MEDS: vancomycin 1,000 MG in sodium chloride 0.9% 250 ML 250 MG IV (21:03)
[2022-02-08] MEDS: aztreonam 2,000 MG in sodium chloride 0.9% (plus) 100 ML 200 MG IV (21:04)
[2022-02-08 21:45] VITALS: BP 119/62; PULSE 92; RESP 22; TEMP 37.2; O2SAT 95
[2022-02-08 21:57] VITALS: BP 95/58; PULSE 91; RESP 16; TEMP 36.8; O2SAT 96
[2022-02-08 22:17] VITALS: BP 119/62; PULSE 92; RESP 22; TEMP 37.2; O2SAT 95
--- NOTE | 2022-02-08 22:44 | PM.HP ---
Providers/Chief Complaint Admitting Physician: Easton Banuelos MD Primary Care Provider: Darleen Pina MD Chief Complaint: N/V/Fever History of Present Illness Morris Sandoval is a 76 year old male with past medical history of hypertension , coronary artery disease status post CABG,HFrEF, Status post aortic valve replacement, was brought in with chief complaint of feeling sick to the stomach, chills, generalized weakness, and shaking, as well as nausea, started later this afternoon, and since then it has progressively worsened. Upon arrival in the ER he was found to be febrile; with noted T-max of 102 Patient denied any chest pain, shortness of the breath, cough, vomiting. He was worked up for above-mentioned complaint: Pertinent imaging studies: CT chest abdpel wo: Diffuse, moderate wall thickening of the bladder.?Stable linear scarring in the right and left lower lobes. No focal consolidation. No pulmonary edema. No pulmonary parenchymal nodules or masses. Pertinent labs: WBC 20.4 H&H: 13/39 , PLT : 204 , serum sodium 136 and potassium 4.3, BUN serum creatinine 24 0.9, serum lactate 1.4, Urinalysis clean COVID PCR negative Review of Systems General: Reports: 10 or more systems reviewed and unremarkable except in HPI and below Const: Reports: chills; Denies: body aches Card: Denies: palpitations, edema, swelling of feet/ankles, dyspnea on exertion, orthopnea or leg pain with exertion Resp: Denies: dyspnea, productive cough, wheezing or pain on inspiration GI: Reports: abdominal pain and nausea; Denies: vomiting, diarrhea or constipation : Denies: flank pain or difficulty urinating Musc: Denies: back pain, extremity pain or extremity swelling Neuro: Denies: headache(s), difficulty walking or confusion Medications/Allergies Home Medications Medication Instructions Recorded Confirmed Last Taken Type losartan 100 mg tablet 100 mg PO DAILY 09/18/19 02/08/22 02/08/22 History nitroglycerin 0.4 mg sublingual 0.4 mg sublingual Q5M PRN Chest 09/18/19 02/08/22 Unknown History tablet (Nitrostat) Pain omeprazole 20 mg capsule,delayed 20 mg PO DAILY 09/18/19 02/08/22 02/08/22 History release silodosin 8 mg capsule (Rapaflo) 8 mg PO BEDTIME 09/18/19 02/08/22 02/07/22 History trazodone 100 mg tablet 100 mg PO BEDTIME 09/18/19 02/08/22 02/07/22 History metoprolol tartrate 50 mg tablet 50 mg PO BID 03/09/21 02/08/22 02/08/22 History potassium chloride 20 mEq 10 meq PO DAILY 03/09/21 02/08/22 Unknown History tablet,extended release(part/cryst) clopidogrel 75 mg tablet 75 mg PO DAILY #90 tabs 08/15/21 02/08/22 02/08/22 Rx furosemide 40 mg tablet 40 mg PO DAILY PRN Edema 09/07/21 02/08/22 Unknown History gabapentin 300 mg capsule 300 mg PO TID 09/07/21 02/08/22 02/08/22 History atorvastatin 40 mg tablet 40 mg PO BEDTIME 02/08/22 02/08/22 02/07/22 History cyclobenzaprine 10 mg tablet 10 mg PO DAILY PRN Muscle Spasm 02/08/22 02/08/22 Unknown History ipratropium bromide 21 mcg (0.03 2 spray intranasal TID PRN Nasal 02/08/22 02/08/22 Unknown History %) nasal spray Congestion Allergies Allergy/AdvReac Type Severity Reaction Status Date / Time Penicillins Allergy unknown Verified 02/08/22 20:14 Sulfa (Sulfonamide Allergy unknown Verified 02/08/22 20:14 Antibiotics) PFSH Acute PFSH: Medical History Atherosclerotic heart disease of [place] coronary artery without angina pectoris Bilateral carotid artery stenosis Chronic systolic heart failure Congestive heart failure Dyslipidemia (high LDL; low HDL) Hypertension Peripheral neuropathy Surgical History Aortic valve replaced History of cataract extraction Hx of CABG Family History Father CAD (coronary artery disease) Diabetes Sister Cancer Chronic kidney disease (CKD) Diabetes Lung disease Brother Diabetes Mother Lung disease Other Hyperlipidemia Hypertension Denies family history of Clotting disorder Dementia Suicide Anesthesia complication Bleeding disorder Stroke Social History Smoking and tobacco status: former smoker Alcohol intake: never Vitals/I&O/Wt Last Vital Signs Temp 99.0 F 02/08/22 22:17 Pulse 92 02/08/22 22:17 Resp 22 H 02/08/22 22:17 BP 119/62 02/08/22 22:17 Pulse Ox 95 02/08/22 22:17 O2 Del Method 02/08/22 21:45 02/08/22 02/08/22 02/08/22 06:59 14:59 22:59 Intake Total 2350 / 2350 Balance 2350 / 2350 Weight last 48 hrs Weight 72.575 kg Physical Exam Const: COMMON NORMALS: patient oriented x3 Resp: COMMON NORMALS: normal respiratory effort, No retractions, No use of accessory muscles and clear to auscultation bilaterally EFFORT & INSPECTION: Yes symmetric chest movement AUSCULTATION: clear to auscultation bilaterally Cardio: COMMON NORMALS: regular rate, regular rhythm, S1 normal heart sound present, S2 normal heart sound present, No gallops present (Cardio), No rub (Cardio) and Peripheral pulses 2+ throughout RATE: regular rate RHYTHM: regular rhythm HEART SOUNDS: S1 normal heart sound present and S2 normal heart sound present PERIPHERAL PULSES: Peripheral pulses 2+ throughout OTHER: Ejection systolic murmur in aortic area GI: COMMON NORMALS: Normal to inspection, nondistended, normoactive bowel sounds present, Soft to palpation, non-tender, No hepatosplenomegaly present and no masses AUSCULTATION: Yes normoactive bowel sounds PALPATION: Yes Soft to palpation and Yes No hepatosplenomegaly present RECTAL EXAM: Yes deferred Extremity: COMMON NORMALS: no clubbing, cyanosis or edema and no pedal edema Neuro: COMMON NORMALS: patient oriented x3 Data : 02/09/22 02:42 02/09/22 02:42 Micro: Microbiology 02/08/22 19:51 Blood Culture - Preliminary Blood SPECIMEN COLLECTED 02/08/22 19:48 Blood Culture - Preliminary Blood SPECIMEN COLLECTED A&P Assessment and plan (1) Hx of CABG: (2) Chronic systolic heart failure: (3) Aortic valve replaced: (4) Hypertension: Qualifiers: Hypertension type: essential hypertension Qualified Code(s): I10 - Essential (primary) hypertension (5) Bilateral carotid artery stenosis: (6) Fever: Plan 76 year old male with past medical history of hypertension , coronary artery disease status post CABG,HFrEF, Status post aortic valve replacement, was brought in with chief complaint of feeling sick to the stomach, chills, generalized weakness, and shaking, as well as nausea, started later this afternoon, and since then it has progressively worsened. Assessment; Fever hypertension coronary artery disease status post CABG, HFrEF currently compensated Status post aortic valve replacement, Plan; Follow blood culture Urine culture Procalcitonin: 2.35 Empirically on broad-spectrum antibiotic Vanco and Primaxin Gentle IV hydration with normal saline Continue Plavix, metoprolol statin We will hold Lasix for now as the patient is dry CODE STATUS: Full code DVT prophylaxis: On Lovenox Attestations Medical Necessity Statement*: Patient needs to be in hospital for management of fever. Need for IV antibiotics.Anticipated length of stay greater than 2 midnights. Time Spent in Patient Care: Greater than 35 minutes (>than 50% of time spent in counselling and/or direct pt care on unit). Coding Level of Care Code Acute Back Digger Operator for [facility] Fwd Exam Detailed Diagnoses Hx of CABG Z95.1 Chronic systolic heart failure I50.22 Aortic valve replaced Z95.2 Hypertension I10 Hypertension type: essential hypertension Bilateral carotid artery stenosis I65.23 Fever R50.9
[2022-02-08 23:08] VITALS: BMI 23.3
[2022-02-08 23:15] LABS: Adenovirus Not Detected (NOT DETECT); Chlamydia Pneumoniae Not Detected (NOT DETECT); Coronavirus 229E,HKU1,NL63,OC4 Not Detected (NOT DETECT); Human Metapneumovirus Not Detected (NOT DETECT); Human Rhinovirus/Enterovirus Not Detected (NOT DETECT); Influenza A Not Detected (NOT DETECT); Influenza A H1 Not Detected (NOT DETECT); Influenza A H1-2009 Not Detected (NOT DETECT); Influenza A H3 Not Detected (NOT DETECT); Influenza B Not Detected (NOT DETECT); Mycoplasma Pneumoniae Not Detected (NOT DETECT); Parainfluenza Virus Type 1 Not Detected (NOT DETECT); Parainfluenza Virus Type 2 Not Detected (NOT DETECT); Parainfluenza Virus Type 3 Not Detected (NOT DETECT); Parainfluenza Virus Type 4 Not Detected (NOT DETECT); Respiratory Syncytial Virus A Not Detected (NOT DETECT); Respiratory Syncytial Virus B Not Detected (NOT DETECT); SARS-COV-2 Not Detected (NOT DETECT)
[2022-02-08 23:27] VITALS: BP 95/58; PULSE 91; RESP 16; TEMP 36.8; O2SAT 96
[2022-02-09] VITALS (8 sets, daily range): BP systolic 99–147; BP diastolic 60–78; PULSE 60–86; RESP 15–21; TEMP 36.3–36.8; O2SAT 90–98
[2022-02-09] MEDS: sodium chloride 0.9% 1,000 ML 75 ML IV (01:11)
[2022-02-09] MEDS: enoxaparin 40 mg/0.4 mL Syringe SUBCUT ×2 (01:12→21:23)
[2022-02-09 03:19] LABS: Basophils # 0.1 10^3/uL (0.0-0.1); Basophils % 0.3 %; Eosinophils # 0.1 10^3/uL (0.0-0.8); Eosinophils % 0.6 %; Hematocrit 34.3 % (42.0-52.0); Hemoglobin 11.3 g/dL (11.7-16.6); Lymphocytes # 2.1 10^3/uL (0.8-4.8); Lymphocytes % 10.8 %; Mean Corpuscular HGB Conc 32.9 g/dL (30.0-36.0); Mean Corpuscular Hemoglobin 31.7 pg (28.0-34.0); Mean Corpuscular Volume 96.1 fl (80-94); Mean Platelet Volume 10.3 fL (7.4-10.4); Monocytes # 1.4 10^3/uL (0.2-0.9); Monocytes % 7.1 %; Neutrophils # 15.66 10^3/uL (1.8-7.7); Neutrophils % 80.7 %; Nucleated Red Blood Cells % 0 %; Platelet Count 182 10^3/cmm (130-400); Red Blood Count 3.57 10^6/uL (4.1-5.3); Red Cell Distribution Width 13.3 % (12.1-15.1); White Blood Count 19.4 10^3/uL (4.0-10.0)
[2022-02-09 03:51] LABS: Anion Gap 13.2 (5-19); Blood Urea Nitrogen 20 mg/dL (8-23); Calcium 8.5 mg/dL (8.5-10.5); Carbon Dioxide 26 mmol/L (22-29); Chloride 104 mmol/L (98-107); Glucose 107 mg/dL (65-115); Osmolality Calculated 291 mOsm/kg (285-295); Potassium 4.2 mmol/L (3.5-5.1); Sodium 139 mmol/L (136-145)
[2022-02-09 03:57] LABS: Procalcitonin 2.35 ng/mL (0-0.5)
[2022-02-09] MEDS: metoprolol tartrate 50 mg Tablet PO ×2 (09:50→17:05)
[2022-02-09] MEDS: pantoprazole DR 40 mg Tablet PO (09:51)
[2022-02-09] MEDS: vancomycin 1,000 MG in sodium chloride 0.9% 250 ML 250 MG IV (09:51)
[2022-02-09] MEDS: clopidogrel 75 mg Tablet PO (09:51)
[2022-02-09] MEDS: gabapentin 300 mg Capsule PO ×3 (09:51→21:07)
--- NOTE | 2022-02-09 13:40 | US_ITS ---
WS: [id number] RIGHT UPPER QUADRANT ULTRASOUND HISTORY: Fever unclear origin, RUQ tender COMPARISON: None available. Liver: 14.8 cm in length. Normal size liver. No bile duct dilatation or mass. Portal Vein: Normal hepatopetal flow with monophasic waveform. Gallbladder: Normally distended gallbladder with no stones or wall thickening. CBD: 0.3 cm Pancreas: Normal size and echogenicity. Right kidney: 9.9 cm in length. Normal size and echogenicity. No hydronephrosis or mass. Aorta and IVC: Unremarkable abdominal aorta and IVC. No ascites. US/US gall bladder [id number] IMPRESSION: Normal RIGHT upper quadrant ultrasound.
--- NOTE | 2022-02-09 13:41 | USCV_ITS ---
Morris Sandoval Age: 76 Gender: M : 1945 Exam Date: 02/09/2022 14:14 Ordering Phys: Cain Gama MD Technologist: Nicholas Lopez Exam Location: [facility] [place] Indication: ao pros BP: 132 / 82 HR: 66 Rhythm: Sinus Technical Quality: Adequate MEASUREMENTS (Male / Female) Normal Values 2D ECHO LV Diastolic Diameter PLAX 3.9 cm 4.2 - 5.9 / 3.9 - 5.3 cm LV Systolic Diameter PLAX 2.2 cm IVS Diastolic Thickness 0.8 cm 0.6 - 1.0 / 0.6 - 0.9 cm IVS Systolic Thickness 1.2 cm LVPW Diastolic Thickness 1.1 cm 0.6 - 1.0 / 0.6 - 0.9 cm LVPW Systolic Thickness 1.3 cm LVOT Diameter 1.7 cm LV Ejection Fraction 2D Teich 76.9 % LV Ejection Fraction MOD 2C 36.0 % LV Ejection Fraction 2C AL 34.0 % LA Diameter 3.4 cm LA Width 4.3 cm IVC Diameter 1.4 cm M-MODE Aortic Annulus Diameter 2.3 cm LA Ao Ratio MM 1.6 MV E Point Septal Separation 0.4 cm DOPPLER AV Peak Velocity 291.0 cm/s LVOT Peak Velocity 83.0 cm/s AV Area Cont Eq vti 0.6 cm squared AV Area Cont Eq pk 0.6 cm squared MV Area PHT 5.0 cm squared Mitral E to A Ratio 1.4 MV E' Velocity 77.5 cm/s Mitral E to MV E' Ratio 16.3 Mitral E to LV E' Lateral Ratio 14.5 Mitral E to LV E' Septal Ratio 18.8 TR Peak Velocity 208.7 cm/s TR Peak Gradient 17.4 mmHg TV Peak E Velocity 160.0 cm/s Right Atrial Pressure 3.0 mmHg Pulmonary Artery Systolic Pressu 20.4 mmHg PV Peak Velocity 104.0 cm/s FINDINGS Left Ventricle Normal left ventricular size and systolic function, EF 55%, with a contrast echo based on MOD. Mild hypokinesia of the LV apical inferior wall segment was noted. Mild concentric left ventricular hypertrophy.Grade III/IV diastolic dysfunction (restrictive filling pattern), severely elevated filling pressures. Right Ventricle The right ventricle is normal in size and function. Right Atrium The right atrium is normal in size. Left Atrium Mildly increased left atrial size. Mitral Valve Trace mitral valve regurgitation. Aortic Valve The bioprosthetic valve in the aortic position appears to be well-seated. The peak velocity at the valve is 2.9 m/s with a peak gradient of 34 and a mean gradient of 16 mmHg. Aortic valve area was calculated to be 0.56 cm squared. The valve index of 0.29. Tricuspid Valve No gross abnormalities noted Pulmonic Valve Pulmonic valve not well visualized. Pericardium Normal pericardium without effusion. Aorta Normal ascending aorta dimension. IVC Normal inferior vena cava. CONCLUSIONS The bioprosthetic valve in the aortic position appears to be well-seated. The peak velocity at the valve is 2.9 m/s with a peak gradient of 34 and a mean gradient of 16 mmHg. Aortic valve area was calculated to be 0.56 cm squared. The valve index of 0.29. Normal left ventricular size and systolic function, EF 55%, with a contrast echo based on MOD. Mild hypokinesia of the LV apical inferior wall segment was noted. Mild concentric left ventricular hypertrophy.Grade III/IV diastolic dysfunction (restrictive filling pattern), severely elevated filling pressures. Trace mitral valve regurgitation. Compared to the study from 09/30/2020, there is some improvement of the LV ejection fraction Dr Lane Hauser MD [facility] (Electronically Signed) Final Date: 10 February 2022 17:23 S
--- NOTE | 2022-02-09 13:41 | PM.PN ---
Subjective Subjective: He states he is overall doing okay. States with fever had very mild headache which has resolved. Denies any photophobia. He is not in pain. Denies shortness of breath or cough. No nausea vomiting or diarrhea. No rash. Small round bruise-like lesion on the distal lateral left middle finger noted on exam, he is not sure how he got it, feels it appeared several days ago, thought he may be pinched the finger somewhere but does not explicitly remember that. Denies other change in the skin. Denies any dental problems, no tooth or gum pain or swelling. Discussed with him and his regarding some findings of diffuse thickening of urinary bladder. He feels sometimes occasionally feels burning sensation with urination, takes medication for BPH, although does not explicitly have issues urinating currently. Discussed results of urinalysis which was entirely unremarkable. He reports some tenderness in right upper quadrant. Vitals/I&O/Wt Last Vital Signs Temp 98.2 F 02/09/22 11:39 Pulse 86 02/09/22 11:39 Resp 21 H 02/09/22 11:39 BP 130/78 02/09/22 11:39 Pulse Ox 90 02/09/22 11:39 O2 Del Method 02/09/22 11:39 02/08/22 02/09/22 02/09/22 22:59 06:59 14:59 Intake Total 2350 / 2350 200 / 2550 470 / 470 Balance 2350 / 2350 200 / 2550 470 / 470 Weight last 48 hrs Weight 73.624 kg Weight 72.575 kg Physical Exam Const: COMMON NORMALS: patient oriented x3 and alert GENERAL APPEARANCE: cooperative ORIENTATION/CONSCIOUSNESS: Yes awake HENMT: COMMON NORMALS: oropharynx normal Neck/C-Spine: COMMON NORMALS: no JVD Resp: COMMON NORMALS: normal respiratory effort and clear to auscultation bilaterally AUSCULTATION: clear to auscultation bilaterally Cardio: COMMON NORMALS: no JVD, regular rhythm, S1 normal heart sound present, S2 normal heart sound present and No murmurs present (Cardio) RHYTHM: regular rhythm HEART SOUNDS: S1 normal heart sound present and S2 normal heart sound present GI: COMMON NORMALS: Normal to inspection, nondistended, normoactive bowel sounds present, Soft to palpation and non-tender PALPATION: Yes Soft to palpation Extremity: COMMON NORMALS: no joint enlargement and no pedal edema Neuro: COMMON NORMALS: patient oriented x3 and moves all extremities SENSORIUM/ORIENTATION: Yes alert Skin: RASHES: no rashes OTHER: Small round bruise-like lesion on the distal lateral left middle finger Data : 02/09/22 02:42 02/09/22 02:42 Micro: Microbiology 02/08/22 19:51 Blood Culture - Preliminary Blood SPECIMEN COLLECTED 02/08/22 19:48 Blood Culture - Preliminary Blood SPECIMEN COLLECTED A&P Assessment and plan (1) Fever: At presentation fever 102 Fahrenheit, unclear cause. No obvious infection so far. With history of bioprosthetic aortic valve. Concern for possible bacteremia. Small round bruise-like lesion on distal lateral surface of left middle finger, he states unsure of how he sustained it. No other lesions suggestive of septic embolic disease apart from this spot. Continue to reassess. Continue empiric antibiotics for now. Follow-up blood culture. Assess TTE. Had mild headache with fever, although this has gone away. No photophobia. Does not appear to have other signs of [place] [employer] infection. No suggestion of pneumonia, UTI, although some diffuse urinary bladder wall thickening, but UA entirely unremarkable. Has some plaque but does not appear to have any dental infection. No cellulitis. Some right upper quadrant tenderness, will assess gallbladder ultrasound, although liver parameters and gallbladder on CT have been unremarkable. COVID-19 PCR panel negative. Procalcitonin elevated. Check CRP. (2) Aortic valve replaced: (3) Hx of CABG: (4) Chronic systolic heart failure: (5) Hypertension: Qualifiers: Hypertension type: essential hypertension Qualified Code(s): I10 - Essential (primary) hypertension (6) Bilateral carotid artery stenosis: Plan Dehydration on presentation: Lasix were held, received gentle IV hydration. Stop IVF. Attestations Medical Necessity Statement*: Continue admission for assessment of management of fever of unclear origin, possible occult infection in the setting of bioprosthetic aortic valve. Coding Level of Care Code Acute Director Of Creative Services for [facility] Fwd Diagnoses Fever R50.9 Aortic valve replaced Z95.2 Hx of CABG Z95.1 Chronic systolic heart failure I50.22 Hypertension I10 Hypertension type: essential hypertension Bilateral carotid artery stenosis I65.23
[2022-02-09 14:24] LABS: C Reactive Protein 13.3 mg/L (0.0-4.9)
[2022-02-09] MEDS: perflutren protein-a microsphr 0.22 mg/mL SDV 3 mL IV (15:05)
--- NOTE | 2022-02-09 18:53 | PC.NURSE ---
Report given to Mariama OWENS at this time
[2022-02-09] MEDS: trazodone 100 mg Tablet PO (21:07)
[2022-02-09] MEDS: atorvastatin 40 mg Tablet PO (21:07)
[2022-02-09] MEDS: vancomycin 1,000 MG in sodium chloride 0.9% 250 ML 200 MG IV (21:10)
[2022-02-10] VITALS (9 sets, daily range): BP systolic 134–158; BP diastolic 73–89; PULSE 57–72; RESP 15–18; TEMP 36.4–36.9; O2SAT 95–98
[2022-02-10 05:11] LABS: Basophils # 0.1 10^3/uL (0.0-0.1); Basophils % 0.6 %; Eosinophils # 0.6 10^3/uL (0.0-0.8); Hematocrit 37.3 % (42.0-52.0); Hemoglobin 12.2 g/dL (11.7-16.6); Lymphocytes # 2.7 10^3/uL (0.8-4.8); Mean Corpuscular HGB Conc 32.7 g/dL (30.0-36.0); Mean Corpuscular Hemoglobin 32.1 pg (28.0-34.0); Mean Corpuscular Volume 98.2 fl (80-94); Mean Platelet Volume 10.1 fL (7.4-10.4); Monocytes # 1.3 10^3/uL (0.2-0.9); Monocytes % 11.5 %; Neutrophils # 6.98 10^3/uL (1.8-7.7); Neutrophils % 59.6 %; Nucleated Red Blood Cells % 0 %; Platelet Count 173 10^3/cmm (130-400); Red Cell Distribution Width 13.5 % (12.1-15.1); White Blood Count 11.7 10^3/uL (4.0-10.0)
[2022-02-10 05:36] LABS: Anion Gap 12.9 (5-19); Blood Urea Nitrogen 18 mg/dL (8-23); Calcium 8.7 mg/dL (8.5-10.5); Carbon Dioxide 24 mmol/L (22-29); Chloride 103 mmol/L (98-107); Glucose 77 mg/dL (65-115); Osmolality Calculated 283 mOsm/kg (285-295); Potassium 3.9 mmol/L (3.5-5.1); Sodium 136 mmol/L (136-145)
[2022-02-10] MEDS: metoprolol tartrate 50 mg Tablet PO ×2 (08:08→17:29)
[2022-02-10] MEDS: gabapentin 300 mg Capsule PO ×3 (08:08→21:10)
[2022-02-10] MEDS: clopidogrel 75 mg Tablet PO (08:08)
[2022-02-10] MEDS: pantoprazole DR 40 mg Tablet PO (08:08)
[2022-02-10] MEDS: vancomycin 1,000 MG in sodium chloride 0.9% 250 ML 200 MG IV ×2 (08:13→21:10)
[2022-02-10 09:05] LABS: Vancomycin Trough 14.9 ug/mL (10-15)
--- NOTE | 2022-02-10 11:50 | PC.CHAP ---
Pastoral Care Encounter/Spiritual Assessment Type of Contact [] Declined plating equipment tender visit [] Patient/Family/Request visit [] Outpatient visit [] Follow-up visit [] Physician referral [] Code/Alert [x] Routine visit [] Staff referral [] Actively dying [] Patient sleeping [] Family support [] [] Out of room [] Palliative care [] [] Receiving care in room [] Pre-surgical visit [] Trauma [] Long length of stay [] ICU visit [] Other: Relational/Emotional Strength x[x] Patient feels connected with others/family/visitors/staff [] Distress [] Loneliness/isolation [] Abandonment Spirituality of Patient [x] Person of Sangita [x] Attends Pentecostal of their Sangita [x] Believes in Prayer [x] Reads Bible or Hoahaoism materials [] There are Spiritual issues to be addressed Matrix Inspector Interventions []x Prayer []x Active listening [x] Non-anxious presence [x] Spiritual/emotional support [x] Crisis/trauma care [] Spiritual counseling [] Bereavement support [] Provided bereavement packet [] Provided Bible/devotional materials [] Provided toy/stuffed animal, coloring book to patient or family member [] Provided Communion [] Anointing/[place]xton [] Salvation [] Completed spiritual assessment [] Other: Impact on Illness or Injury [] Angry [] Fearful [] Anxious [] Often cries [] Exhaustion [] Unable to work [] Unable to attend anglican [] Unable to walk/stand [] Unable to read [] Unable to drive [] Unable to eat/drink [] Unable to sleep [] Unable to be with family [] Patient intubated [] Other: Summary Time spent with patient 15 min
--- NOTE | 2022-02-10 12:11 | PM.PN ---
Subjective Subjective: He is overall doing okay, no headache, no other symptoms. No cough. No nausea vomiting or diarrhea. Abdominal discomfort. Denies any sore throat, although on examination does appear to have a small white/wheeler patch right posterior pharynx. No rash. Otherwise reports feels well. Vitals/I&O/Wt Last Vital Signs Temp 97.7 F 02/10/22 11:47 Pulse 66 02/10/22 11:47 Resp 17 02/10/22 11:47 BP 158/89 02/10/22 11:47 Pulse Ox 97 02/10/22 11:47 O2 Del Method 02/10/22 11:47 02/09/22 02/10/22 02/10/22 22:59 06:59 14:59 Intake Total 1470 / 1940 100 / 2040 240 / 240 Output Total 450 / 450 Balance 1470 / 1940 -350 / 1590 240 / 240 Weight last 48 hrs Weight 78.557 kg Weight 73.624 kg Weight 72.575 kg Physical Exam Const: COMMON NORMALS: patient oriented x3 and alert GENERAL APPEARANCE: cooperative ORIENTATION/CONSCIOUSNESS: Yes awake HENMT: COMMON NORMALS: oropharynx normal Neck/C-Spine: COMMON NORMALS: no JVD Resp: COMMON NORMALS: normal respiratory effort and clear to auscultation bilaterally AUSCULTATION: clear to auscultation bilaterally Cardio: COMMON NORMALS: no JVD, regular rhythm, S1 normal heart sound present, S2 normal heart sound present and No murmurs present (Cardio) RHYTHM: regular rhythm HEART SOUNDS: S1 normal heart sound present and S2 normal heart sound present GI: COMMON NORMALS: Normal to inspection, nondistended, normoactive bowel sounds present, Soft to palpation and non-tender PALPATION: Yes Soft to palpation Extremity: COMMON NORMALS: no joint enlargement and no pedal edema Neuro: COMMON NORMALS: patient oriented x3 and moves all extremities SENSORIUM/ORIENTATION: Yes alert Skin: RASHES: no rashes OTHER: Small round bruise-like lesion on the distal lateral left middle finger Data : 02/10/22 04:53 02/10/22 04:53 Micro: Microbiology 02/09/22 02:00 Urine Culture - Preliminary Urine,Voided 02/10/22 08:20 Blood Culture - Preliminary Blood SPECIMEN COLLECTED 02/10/22 08:20 Blood Culture - Preliminary Blood SPECIMEN COLLECTED 02/08/22 19:51 Blood Culture - Preliminary Blood NEGATIVE TO DATE 02/08/22 19:48 Blood Culture - Preliminary Blood NEGATIVE TO DATE A&P Assessment and plan (1) Fever: Blood cultures so far negative. Repeat blood culture. Small whitish drainage patch posterior pharynx, although denies sore throat. Will assess rapid strep. Monospot. Follow-up pending TTE. Consider JERRI given bioprosthetic aortic valve. Continue empiric antibiotic. No further fever. Leukocytosis subsiding. Did have elevation of CRP, procalcitonin. COVID-19 PCR panel negative. (2) Aortic valve replaced: (3) Hx of CABG: (4) Chronic systolic heart failure: (5) Hypertension: Qualifiers: Hypertension type: essential hypertension Qualified Code(s): I10 - Essential (primary) hypertension (6) Bilateral carotid artery stenosis: Plan Dehydration on presentation: Lasix were held, received gentle IV hydration. Stop IVF. Attestations Medical Necessity Statement*: Continue admission for assessment and management of fever of unclear origin and gentleman with underlying bioprosthetic aortic valve, ascending aortic graft. Coding Level of Care Code Acute Linux Programmer for [facility] Fwd Diagnoses Fever R50.9 Aortic valve replaced Z95.2 Hx of CABG Z95.1 Chronic systolic heart failure I50.22 Hypertension I10 Hypertension type: essential hypertension Bilateral carotid artery stenosis I65.23
[2022-02-10 13:18] LABS: Monoscreen Negative (Negative)
[2022-02-10 17:03] LABS: Rapid Strep A Test Negative (Negative)
[2022-02-10] MEDS: fexofenadine 60 mg Tablet PO (18:09)
[2022-02-10] MEDS: enoxaparin 40 mg/0.4 mL Syringe SUBCUT (21:10)
[2022-02-10] MEDS: atorvastatin 40 mg Tablet PO (21:10)
[2022-02-10] MEDS: trazodone 100 mg Tablet PO (21:10)
[2022-02-11] MEDS: ondansetron 2 mg/ML SDV 2 mL 4 MG IVP (04:32)
[2022-02-11 05:13] LABS: Basophils # 0.1 10^3/uL (0.0-0.1); Basophils % 0.4 %; Eosinophils # 0.5 10^3/uL (0.0-0.8); Eosinophils % 3.9 %; Hematocrit 36.2 % (42.0-52.0); Hemoglobin 12.2 g/dL (11.7-16.6); Lymphocytes # 2.2 10^3/uL (0.8-4.8); Lymphocytes % 16.3 %; Mean Corpuscular HGB Conc 33.7 g/dL (30.0-36.0); Mean Corpuscular Hemoglobin 31.9 pg (28.0-34.0); Mean Corpuscular Volume 94.8 fl (80-94); Mean Platelet Volume 10.5 fL (7.4-10.4); Monocytes # 1.4 10^3/uL (0.2-0.9); Monocytes % 10.4 %; Neutrophils # 9.39 10^3/uL (1.8-7.7); Neutrophils % 68.7 %; Nucleated Red Blood Cells % 0 %; Platelet Count 199 10^3/cmm (130-400); Red Blood Count 3.82 10^6/uL (4.1-5.3); Red Cell Distribution Width 13.2 % (12.1-15.1); White Blood Count 13.7 10^3/uL (4.0-10.0)
[2022-02-11 05:23] VITALS: BP 171/90; PULSE 90; RESP 18; TEMP 36.8; O2SAT 18
[2022-02-11 06:00] VITALS: PULSE 76
[2022-02-11 07:58] VITALS: BP 148/83; PULSE 76; RESP 16; TEMP 36.4; O2SAT 93
[2022-02-11 08:00] VITALS: BP 126/75; PULSE 57; RESP 16; TEMP 36.4
--- NOTE | 2022-02-11 09:44 | PC.SOCIAL ---
Pg 2 IMM Explained to pt Pg 2 IMM. No questions voiced. Provided pt a copy. Initialed, dated, & timed a copy & placed in chart.
[2022-02-11] MEDS: vancomycin 1,000 MG in sodium chloride 0.9% 250 ML 250 MG IV (09:48)
[2022-02-11] MEDS: pantoprazole DR 40 mg Tablet PO (09:49)
[2022-02-11] MEDS: clopidogrel 75 mg Tablet PO (09:49)
[2022-02-11] MEDS: gabapentin 300 mg Capsule PO (09:49)
[2022-02-11] MEDS: metoprolol tartrate 50 mg Tablet PO (09:49)
[2022-02-11 11:20] VITALS: BP 126/75; PULSE 57; RESP 16; TEMP 36.4; O2SAT 96
--- NOTE | 2022-02-11 14:04 | PM.DCS ---
Discharge Providers Date of Admission: 02/08/22 21:58 Date of Discharge: February 11, 2022 Attending Provider at Admission: Easton Banuelos MD Attending Provider at Discharge: Cain Gama Primary Care Provider: Darleen Pina MD Diagnoses at Discharge Discharge Diagnosis (1) Fever: Status: Acute (2) Aortic valve replaced: Status: Acute (3) Hx of CABG: Status: Acute (4) Chronic systolic heart failure: Status: Acute (5) Hypertension: Status: Acute Qualifiers: Hypertension type: essential hypertension Qualified Code(s): I10 - Essential (primary) hypertension (6) Bilateral carotid artery stenosis: Status: Acute Reason for Visit Reason for Visit: N/V/Fever Hospital Course Hospital Course Very pleasant 76-year-old gentleman with history of CAD, CABG, as well as history of aortic valve replacement x2, last valve bioprosthetic, as well as ascending aortic graft, history of CHF, HTN, HLD, peripheral neuropathy, was admitted for assessment management after an episode of chills and fever, on presentation fever up to 102 Fahrenheit, leukocytosis 19.4. He was started empirically on Primaxin and vancomycin. He had no recurrence of fever. Leukocytosis has decreased. He has not developed any additional new symptoms. Unfortunately work-up quite extensive so far has not revealed any obvious source of his illness. His chest x-ray presentation was nonacute. He underwent imaging with CT chest abdomen and pelvis which showed no acute cardiopulmonary process, prosthetic aortic valve and ascending aortic graft stable in position. Diffuse bladder wall thickening of the bladder possible cystitis. However, urinalysis was completely clean, and there was no growth on urine culture. He had had some dyspepsia, initially some tenderness in right upper quadrant, and so had additional assessment with gallbladder ultrasound, although liver parameters remain normal. Ultrasound with normal right upper quadrant. On presentation his CRP is noted elevated at 13.3. Procalcitonin abnormal at 2.35. Blood cultures were collected on presentation and repeated again on 02/10. Both sets of cultures so far have been negative, still preliminary and final's need to be followed up. Small whitish-grayish patch was noted on posterior right pharynx, although he did not have any other obvious signs of pharyngitis, did not complain of any sore throat. Rapid strep was collected and negative. Monospot was checked as well and negative. Initially had a mild headache, but that had resolved and without any recurrence. 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 COVID-19 PCR panel on presentation was negative. He underwent additional assessment with TTE which showed bioprosthetic valve in aortic position appearing well-seated. Peak velocity 2.9 m/s, peak gradient 34, mean gradient 16, aortic valve area 0.56. Valve index 0.29. EF 55% with a contrast based echo. Mild hypokinesia LV apical wall. Grade 3 diastolic function. He did not have any rash, severe joint pain, frequent, pulmonary or renal abnormality suggest vasculitis or other autoimmune condition. On additional questioning his states that several weeks back there was a small tick found on the back of his scrotum, seems he did not admit to it as he was somewhat embarrassed, although he has had no residual rash, had no persistent fever, thrombocytopenia, LFT abnormality or hyponatremia or obvious other symptoms of tickborne illness. Still tick panel was sent out. His lipase was normal. He had no diarrhea or vomiting. Given dyspepsia age and concerning symptoms, will also refer her for additional assessment by EGD. Given diffuse urinary bladder thickening and fever of unclear origin we will additionally refer for assessment with urology. On exam he had no obvious signs of embolic disease, although did have a small bruise-like spot on distal lateral third finger which he was not sure how it appeared there. [place] he may have pinched the finger, although still some concern given underlying aortic valve, aortic graft unclear origin of fever, discussed with him and his concern for possibility of infection of the valve further graft, although blood cultures have remained negative so far. Discussed with him additional closer assessment with JERRI, follow-up with infectious disease specialist, cardiology. Source of his illness has not been determined as of yet. Continue reassessment search for possible trigger of the fever episode in the setting of previously replaced aortic valve ascending . Physical Exam Const: COMMON NORMALS: patient oriented x3 and alert GENERAL APPEARANCE: cooperative ORIENTATION/CONSCIOUSNESS: Yes awake HENMT: COMMON NORMALS: oropharynx normal Neck/C-Spine: COMMON NORMALS: no JVD Resp: COMMON NORMALS: normal respiratory effort and clear to auscultation bilaterally AUSCULTATION: clear to auscultation bilaterally Cardio: COMMON NORMALS: no JVD, regular rhythm, S1 normal heart sound present, S2 normal heart sound present and No murmurs present (Cardio) RHYTHM: regular rhythm HEART SOUNDS: S1 normal heart sound present and S2 normal heart sound present GI: COMMON NORMALS: Normal to inspection, nondistended, normoactive bowel sounds present, Soft to palpation and non-tender PALPATION: Yes Soft to palpation Extremity: COMMON NORMALS: no joint enlargement and no pedal edema Neuro: COMMON NORMALS: patient oriented x3 and moves all extremities SENSORIUM/ORIENTATION: Yes alert Skin: RASHES: no rashes OTHER: Small round bruise-like lesion on the distal lateral left middle finger Discharge Data Studies Completed and Pending Completed Studies During Hospitalization Category Date Time Status CT chest abdomen pelvis [[place] [id number] Cat Scan 02/08/22 20:26 Completed ] Stat XR chest 1V portable [id number] Stat Exams 02/08/22 19:07 Completed CV. echo wo/w contrast [id number] Routine Ultrasound 02/09/22 13:41 Completed US gall bladder [id number] Routine Ultrasound 02/09/22 13:40 Completed Pending at discharge Category Date Time Status Blood Culture Stat Lab 02/08/22 19:51 Results Blood Culture Stat Lab 02/10/22 08:20 Results Comprehensive Metabolic Panel AM LABS Lab 02/12/22 04:00 Ordered Comprehensive Metabolic Panel AM LABS Lab 02/13/22 04:00 Ordered Streptococcus Culture Group A Routine Lab 02/10/22 15:22 Results Tick Panel Routine Lab 02/10/22 04:53 Received Vancomycin Trough Timed Lab 02/11/22 20:00 Ordered Radiology Impressions Chest X-Ray 02/08/22 19:07 IMPRESSION: 1. No acute cardiopulmonary process. 2. Incidental/nonacute findings are listed in the report. Chest/Abdomen/Pelvis CT 02/08/22 20:26 IMPRESSION: 1. No acute cardiopulmonary process. 2. The patient has a prosthetic aortic valve and ascending aortic graft, stable in position. 3. Incidental/nonacute findings are listed in the report. IMPRESSION: 1. Diffuse, moderate wall thickening of the bladder. In the correct clinical setting, this may suggest cystitis. Recommend correlation with laboratory findings. Alternatively, this may be secondary to chronic outlet obstruction. 2. Incidental/nonacute findings are listed in the report. Gallbladder Ultrasound 02/09/22 13:40 IMPRESSION: Normal RIGHT upper quadrant ultrasound. Laboratory Results WBC 13.7 10^3/uL (4.0-10.0) H 02/11/22 04:30 RBC 3.82 10^6/uL (4.1-5.3) L 02/11/22 04:30 Hgb 12.2 g/dL (11.7-16.6) 02/11/22 04:30 Hct 36.2 % (42.0-52.0) L 02/11/22 04:30 MCV 94.8 fl (80-94) H 02/11/22 04:30 MCH 31.9 pg (28.0-34.0) 02/11/22 04:30 MCHC 33.7 g/dL (30.0-36.0) 02/11/22 04:30 RDW 13.2 % (12.1-15.1) 02/11/22 04:30 Plt Count 199 10^3/cmm (130-400) 02/11/22 04:30 MPV 10.5 fL (7.4-10.4) H 02/11/22 04:30 Neut % (Auto) 68.7 % 02/11/22 04:30 Lymph % (Auto) 16.3 % 02/11/22 04:30 Steele % (Auto) 10.4 % 02/11/22 04:30 Eos % (Auto) 3.9 % 02/11/22 04:30 Baso % (Auto) 0.4 % 02/11/22 04:30 Neut # (Auto) 9.39 10^3/uL (1.8-7.7) H 02/11/22 04:30 Lymph # (Auto) 2.2 10^3/uL (0.8-4.8) 02/11/22 04:30 Steele # (Auto) 1.4 10^3/uL (0.2-0.9) H 02/11/22 04:30 Eos # (Auto) 0.5 10^3/uL (0.0-0.8) 02/11/22 04:30 Baso # (Auto) 0.1 10^3/uL (0.0-0.1) 02/11/22 04:30 Nucleated RBC % (auto) 0 % 02/11/22 04:30 Nucleated RBCs # 0.0 /100WBC 02/11/22 04:30 Sodium Cancelled 02/11/22 04:30 Potassium Cancelled 02/11/22 04:30 Chloride Cancelled 02/11/22 04:30 Carbon Dioxide Cancelled 02/11/22 04:30 Anion Gap Cancelled 02/11/22 04:30 BUN Cancelled 02/11/22 04:30 Creatinine Cancelled 02/11/22 04:30 GFR Calculation Cancelled 02/11/22 04:30 Glucose Cancelled 02/11/22 04:30 Calculated Osmolality Cancelled 02/11/22 04:30 Lactate 1.4 mmol/L (0.5-2.2) 02/08/22 19:48 Calcium Cancelled 02/11/22 04:30 Total Bilirubin Cancelled 02/11/22 04:30 AST Cancelled 02/11/22 04:30 ALT Cancelled 02/11/22 04:30 Alkaline Phosphatase Cancelled 02/11/22 04:30 C-Reactive Protein 13.3 mg/L (0.0-4.9) H 02/09/22 02:42 NT-Pro-B Natriuret Pep 406 pg/mL (0-450) 02/08/22 19:48 Total Protein Cancelled 02/11/22 04:30 Albumin Cancelled 02/11/22 04:30 Globulin Cancelled 02/11/22 04:30 Lipase 24 U/L (13-60) 02/08/22 19:48 Procalcitonin 2.35 ng/mL (0-0.5) H 02/09/22 02:42 Urine Color Yellow (Yellow) 02/08/22 20:05 Urine Appearance Clear (CLEAR) 02/08/22 20:05 Urine pH 5.5 (5-7) 02/08/22 20:05 Ur Specific [place] 1.020 (1.005-1.030) 02/08/22 20:05 Urine Protein Negative 02/08/22 20:05 Urine Glucose (UA) Negative (Normal) 02/08/22 20:05 Urine Ketones Negative (Negative) 02/08/22 20:05 Urine Blood Negative (Negative) 02/08/22 20:05 Urine Nitrate Negative 02/08/22 20:05 Urine Bilirubin Negative (Negative) 02/08/22 20:05 Urine Urobilinogen 0.2 mg/dL (Negative) 02/08/22 20:05 Ur Leukocyte Esterase Negative 02/08/22 20:05 Vancomycin Trough 14.9 ug/mL (10-15) 02/10/22 07:55 Coronavirus 229E (PCR) Not detected (NOT DETECT) 02/08/22 21:20 Monoscreen Negative (Negative) 02/10/22 04:53 SARS-CoV-2 (PCR) Not detected (NOT DETECT) 02/08/22 21:20 SARS-CoV-2 Ag (Rapid) Negative (Negative) 02/08/22 19:07 Group A Strep Rapid Negative (Negative) 02/10/22 15:22 Vitals Last Vital Signs Temp 97.6 F 02/11/22 11:20 Pulse 57 L 02/11/22 11:20 Resp 16 02/11/22 11:20 BP 126/75 02/11/22 11:20 Pulse Ox 96 02/11/22 11:20 O2 Del Method 02/11/22 11:20 Discharge Plan Discharge Patient Disposition: Home Condition: Stable Prescriptions: New levofloxacin 750 mg tablet 750 mg PO DAILY 14 Days Qty: 14 0RF doxycycline hyclate 100 mg capsule 100 mg PO BID 14 Days Qty: 28 0RF Continued silodosin [Rapaflo] 8 mg capsule 8 mg PO BEDTIME nitroglycerin [Nitrostat] 0.4 mg tablet, sublingual 0.4 mg SUBLINGUAL Q5M PRN (Reason: Chest Pain) trazodone 100 mg tablet 100 mg PO BEDTIME furosemide 40 mg tablet 40 mg PO DAILY PRN (Reason: Edema) gabapentin 300 mg capsule 300 mg PO TID potassium chloride 20 mEq tablet,ER particles/crystals 10 meq PO DAILY metoprolol tartrate 50 mg tablet 50 mg PO BID clopidogrel 75 mg tablet 75 mg PO DAILY Qty: 90 3RF atorvastatin 40 mg tablet 40 mg PO BEDTIME cyclobenzaprine 10 mg tablet 10 mg PO DAILY PRN (Reason: Muscle Spasm) ipratropium bromide 21 mcg (0.03 %) spray,non-aerosol 2 spray INTRANASAL TID PRN (Reason: Nasal Congestion) Changed losartan 100 mg tablet 50 mg PO DAILY Qty: 1 0RF omeprazole 20 mg capsule,delayed release(DR/EC) 20 mg PO BIDWM Qty: 90 0RF Discharge Orders: Discharge Order (Routine); Ordered 02/11/22 Ordered By: Cain Gama Other Ambulatory Orders: CV. echo transesophageal [id number] (Routine) Timeframe: 3 Days Location: [facility] Ordered By: Cain Gama Referrals: Darleen Pina MD [Primary Care Provider] - 4-7 days (Please follow-up with Dr. Pina on Sunday, Feb.15 at 10:15A.M. If you have any questions or need to reschedule. Please call ) Osvaldo Buck DO [Physician] - 1 week (EGD - dyspepsia, fever of unclear source) Lane Hauser MD [Physician] - 1 week (Fever, aortic graft, valve) Mode Sanchez MD [Physician] - 1 week (Urinary bladder thickening) Marielos Lundberg MD [Hospitalist] - (Soonest available appointment - fever, unclear origin, bioprosthetic aortic valve, aortic graft) Discharge Diet: Cardiac Discharge Activity: Increase activity as tolerated Patient Instructions: Doxycycline (By mouth), Levofloxacin (By mouth), Fever - Adult, CABG (Coronary Artery Bypass Graft) (DC) Activity Restrictions/Additional Instructions: Continue antibiotics until the source of your fever is determined. Please follow-up with your primary doctor follow-up also with infectious disease specialist due to fever episode of unclear origin and due to having bioprosthetic aortic valve as well as ascending aortic graft. Please follow-up for transesophageal echocardiogram to closer assess the aortic valve for any vegetation or perivalvular abscess. Follow-up with cardiology as well. Please have your primary doctor, infectious disease doctor follow-up blood cultures which so far have been negative but are pending. Your antibiotic will also cover for most common possible tickborne illness, please have your primary doctor, infectious disease doctor follow-up tick panel. In case of development of persistent fever, or any other concerning symptoms, return to the hospital. Avoid any NSAIDs, increase omeprazole dose to twice a day, follow-up with surgery for additional assessment of dyspepsia with upper endoscopy. Follow-up with urology regarding diffusely thickened urinary bladder, although no evidence of urinary infection has been seen during his hospitalization. Continue your prostate medication. Discharge Attestations Time Spent in Discharge Care*: greater than 30 min Quality Metrics Clinical Quality Measures [ No reported AMI, CVA or VTE this stay] Coding Level of Care Code Acute Chg FW DC note Diagnoses Fever R50.9 Aortic valve replaced Z95.2 Hx of CABG Z95.1 Chronic systolic heart failure I50.22 Hypertension I10 Hypertension type: essential hypertension Bilateral carotid artery stenosis I65.23
[2022-02-11 15:15] VITALS: BP 126/75; PULSE 57; RESP 16; TEMP 36.4; O2SAT 96
--- NOTE | 2022-02-11 15:25 | PC.NURSE ---
Called prescriptions into [facility] pharmacy in [place].
[2022-02-14 16:37] LABS: Lyme AB Screen <0.90 index
[2022-02-15 17:27] LABS: E. Chaffeensis AB IGG <1:64; E. Chaffeensis AB IGM <1:20
[2022-02-16 17:58] LABS: RMSF IGG NOT DETECTED; RMSF IGM NOT DETECTED
== END 2022-02-11 15:31 | disposition home or self-care (01) | DRG 864 ==
LOC: ER 19:30 → MEDSURG 22:09
PROVIDERS: Admitting Provider Internal Medicine; Emergency Provider Emergency Medicine; PCP Family Medicine; Visit Provider Internal Medicine
DX: R50.9 Fever, unspecified (principal); I50.22 Chronic systolic (congestive) heart failure; I11.0 Hypertensive heart disease with heart failure; I25.10 Atherosclerotic heart disease of native coronary artery without angina pectoris; Z95.1 Presence of aortocoronary bypass graft; Z95.3 Presence of xenogenic heart valve; Z98.890 Other specified postprocedural states; I65.23 Occlusion and stenosis of bilateral carotid arteries; E78.5 Hyperlipidemia, unspecified; G62.9 Polyneuropathy, unspecified; Z87.891 Personal history of nicotine dependence; N40.0 Benign prostatic hyperplasia without lower urinary tract symptoms; R51.9 Headache, unspecified; Z79.02 Long term (current) use of antithrombotics/antiplatelets
CPT/HCPCS: 36415; 71045; 71250; 74176; 76705; 80048; 80053; 80202; 81003; 83605; 83690; 83880; 84145; 85025; 86140; 86308; 86618; 86666; 86757; 87040; 87081; 87086; 87426; 87635; 87880; 93005; 96365; 96367; 96372; 99285; C8929; J0743; J1650; J2405; J3370; J3490; J7030; J7050; Q9956

== ENCOUNTER → 2022-02-15 13:23 | Outpatient (BNVA) | payer MEDICARE, BC, SELFPAY | PROVIDERS: PCP Family Medicine; Visit Provider Nurse Practitioner Family | DX: D72.829 Elevated white blood cell count, unspecified (principal); Z95.2 Presence of prosthetic heart valve | CPT/HCPCS: 99213 ==

== ENCOUNTER → 2022-02-21 10:44 | Outpatient (BNVA) | payer MEDICARE, BC, SELFPAY | PROVIDERS: PCP Family Medicine; Visit Provider Surgery | DX: R10.13 Epigastric pain (principal) | CPT/HCPCS: 99203 ==

== ENCOUNTER 2022-03-03 10:15 | Day surgery (SDC) | payer MEDICARE, BC, SELFPAY ==
[2022-02-28 10:36] VITALS: BMI 23.6
[2022-03-03 10:48] VITALS: BP 168/84; PULSE 57; RESP 18; TEMP 36.6; O2SAT 98
[2022-03-03] MEDS: sodium chloride 0.9% 1,000 ML 30 ML IV (11:05)
--- NOTE | 2022-03-03 11:47 | USCV_ITS ---
Morris Sandoval Age: 77 Gender: M : 1945 Exam Date: 03/03/2022 12:12 Ordering Phys: Lane Hauser MD ([email or web address]) Technologist: BRYAN Exam Location: [facility] [place] Indication: AORTIC VALVE REPLACEMENT BP: 170 / 109 HR: 64 Rhythm: Sinus Technical Quality: Good MEASUREMENTS (Male / Female) Normal Values DOPPLER TR Peak Velocity 256.7 cm/s TR Peak Gradient 26.4 mmHg TR Mean Velocity 204.4 cm/s TR Mean Gradient 17.9 mmHg TR Velocity Time Integral 84.3 cm Medications IV propofol administered with anesthesia service. Please refer to anesthesia report for details Complications None Proc. Components The patient was brought to the JERRI examination room in a fasting state after obtaining an informed consent. The JERRI probe was passed into the posterior pharynx , mid-esophagus, distal esophagus, and gastric fundus. The patient tolerated the procedure well and there were no complications. JERRI was performed at multiple levels. FINDINGS Left Ventricle Mild concentric left ventricular hypertrophy with normal ejection fraction Right Ventricle Possibly normal size ejection fraction Right Atrium No intracavitary masses Left Atrium Mildly dilated with no intracavitary masses LA Appendage Patient with normal size with a slightly diminished contractility IA Septum Appears to be intact with no evidence of any intracardiac shunt, based on color-flow Doppler examination Mitral Valve Mild mitral valve regurgitation. Aortic Valve The bioprosthetic valve in the aortic position appears to be well-seated. No masses or vegetations were noted on the leaflets. The leaflets are minimally thickened. No masses or vegetations. Tricuspid Valve [id number] tricuspid valve regurgitation. Pulmonic Valve No masses or vegetations noted. Pericardium No pericardial effusion. Aorta Normal aortic annulus size. CONCLUSIONS The bioprosthetic valve at the aortic position appears to be well-seated with no masses or vegetations. No intracardiac masses or vegetations noted. Mild to moderate mitral and tricuspid regurgitation. Mildly dilated left atrium. Mild concentric left trickle hypertrophy with ejection fraction of 55% No similar previous studies are available for comparison Dr Lane Hauser MD FAC (Electronically Signed) Final Date: 03 March 2022 15:54 S
--- NOTE | 2022-03-03 11:55 | W.PM.OPSUD ---
Surgery/Procedure H&P Update DATE OF PROCEDURE: March 03, 2022 DATE H&P PERFORMED: 02/15/22 H&P UPDATE INFORMATION: I have reviewed H&P completed within last 30 days, I have examined patient prior to procedure and No changes to prior documentation PREOP DIAGNOSIS: Bioprosthetic aortic valve/unexplained fever/rule out endocarditis PLANNED PROCEDURE: Operation Date: 03/03/22 12:00 Proposed Procedures p JERRI [id number](Not Applicable) - Lane Hauser MD
--- NOTE | 2022-03-03 12:00 | ANES.PREANE2 ---
Pre-Anesthetic Assessment Height/Weight: Height 1.75 m Weight 72.575 kg Temp Pulse Resp BP Pulse Ox O2 Del Method 97.4 F L 59 L 20 H 85/49 99 03/03/22 12:30 03/03/22 12:30 03/03/22 12:30 03/03/22 12:30 03/03/22 12:30 03/03/22 12:30 Preop Diagnosis: Bioprosthetic aortic valve/unexplained fever/rule out endocarditis Operation Date: 03/03/22 12:00 Proposed Procedures p JERRI [id number](Not Applicable) - Lane Hauser MD Familial anesthetic complications: none Was Beta Pia taken within 24 hours: Yes Was Clonidine taken within 24 hours: N/A Last intake: Intake Last Liquid Date 03/02/22 Last Liquid Time 21:00 Last Solid Date 03/02/22 Last Solid Time 18:00 Last Intake: 18:00 Social No alcohol and No tobacco Exam alert and oriented x 3 Airway Submandibular: within normal limits Cervical ROM: within normal limits Mallampati: Class II History/ROS No significant history except as noted Pulmonary None reported CV/HEM Hypertension aortic valve replaced in 2018 None reported Hepatic None reported GI None reported Metabolic Hyperlipidemia [facility] [place] None reported Neuropsych None reported Anesthetic Plan ASA status: 3 Anesthesia: Anesthesia Evaluation and MAC Risk of > 500 ml blood loss (7ml/kg in children): No Medications/Allergies Home Medications Medication Instructions Recorded Confirmed Last Taken Type nitroglycerin 0.4 mg sublingual 0.4 mg sublingual Q5M PRN Chest 09/18/19 03/03/22 Unknown History tablet (Nitrostat) Pain silodosin 8 mg capsule (Rapaflo) 8 mg PO BEDTIME 09/18/19 03/03/22 03/02/22 History trazodone 100 mg tablet 100 mg PO BEDTIME 09/18/19 03/03/22 03/02/22 History metoprolol tartrate 50 mg tablet 50 mg PO BID 03/09/21 03/03/22 03/03/22 History potassium chloride 20 mEq 10 meq PO DAILY PRN with furosemide 03/09/21 03/03/22 Unknown History tablet,extended release(part/cryst) clopidogrel 75 mg tablet 75 mg PO DAILY #90 tabs 08/15/21 03/03/22 03/02/22 Rx furosemide 40 mg tablet 40 mg PO DAILY PRN Edema 09/07/21 03/03/22 Unknown History gabapentin 300 mg capsule 300 mg PO TID 09/07/21 03/03/22 03/03/22 History atorvastatin 40 mg tablet 40 mg PO BEDTIME 02/08/22 03/03/22 03/02/22 History cyclobenzaprine 10 mg tablet 10 mg PO DAILY PRN Muscle Spasm 02/08/22 03/03/22 03/02/22 History ipratropium bromide 21 mcg (0.03 2 spray intranasal TID PRN Nasal 02/08/22 03/03/22 03/03/22 History %) nasal spray Congestion losartan 100 mg tablet 50 mg PO DAILY #1 tab 02/11/22 03/03/22 03/02/22 Rx omeprazole 20 mg capsule,delayed 20 mg PO BID 02/28/22 03/03/22 03/02/22 History release Allergies Allergy/AdvReac Type Severity Reaction Status Date / Time Penicillins Allergy unknown Verified 03/03/22 10:46 Sulfa (Sulfonamide Allergy unknown Verified 03/03/22 10:46 Antibiotics) [facility] Anesthesia Medical History (Updated 02/21/22 @ 11:22 by Osvaldo Buck DO) Atherosclerotic heart disease of [place] coronary artery without angina pectoris Bilateral carotid artery stenosis C. difficile diarrhea Chronic systolic heart failure Congestive heart failure Dyslipidemia (high LDL; low HDL) Hypertension Peripheral neuropathy Surgical History (Updated 02/21/22 @ 11:22 by Osvaldo Buck DO) Aortic valve replaced History of cataract extraction History of colonoscopy Hx of CABG Family History Father CAD (coronary artery disease) Diabetes Sister Cancer Chronic kidney disease (CKD) Diabetes Lung disease Brother Diabetes Mother Lung disease Other Hyperlipidemia Hypertension Denies family history of Clotting disorder Dementia Suicide Anesthesia complication Bleeding disorder Stroke Social History Smoking and tobacco status: never smoked Alcohol intake: never Data Anesthesia Cardiac Studies: Echocardiogram 02/09/22 Echocardiogram Ultrasound 09/22/20 Sestamibi Stress Test (Cardiology) 11/05/20
[2022-03-03 12:30] VITALS: BP 85/49; PULSE 59; RESP 20; TEMP 36.3; O2SAT 99
--- NOTE | 2022-03-03 12:37 | ANE.PACU2 ---
Inpatient post-anesthesia follow up: Airway intact: Yes Vital signs: Temperature 97.4 F Pulse Rate 59 Respiratory Rate 20 Blood Pressure 85/49 Pulse Oximetry 99 Oxygen Delivery Me thod Room Air Oxygen Flow Rate Fraction of Inspir ed Oxygen Hydration adequate: Yes Nausea and vomiting: No Pain level: 1 Mental status: Baseline
[2022-03-03 12:40] VITALS: BP 80/46; PULSE 59; RESP 18; O2SAT 99
[2022-03-03 12:55] VITALS: BP 119/60; PULSE 60; RESP 18; O2SAT 98
[2022-03-03 13:09] VITALS: BP 144/74; PULSE 61; RESP 16; O2SAT 96
[2022-03-03 13:09] LABS: Basophils # 0.1 10^3/uL (0.0-0.1); Basophils % 0.6 %; Eosinophils # 0.3 10^3/uL (0.0-0.8); Eosinophils % 3.7 %; Hematocrit 34.1 % (42.0-52.0); Hemoglobin 11.3 g/dL (11.7-16.6); Lymphocytes # 2.1 10^3/uL (0.8-4.8); Lymphocytes % 26.5 %; Mean Corpuscular HGB Conc 33.1 g/dL (30.0-36.0); Mean Corpuscular Volume 96.6 fl (80-94); Mean Platelet Volume 10.8 fL (7.4-10.4); Monocytes # 0.8 10^3/uL (0.2-0.9); Monocytes % 9.7 %; Neutrophils # 4.64 10^3/uL (1.8-7.7); Neutrophils % 59.1 %; Nucleated Red Blood Cells % 0 %; Platelet Count 175 10^3/cmm (130-400); Red Blood Count 3.53 10^6/uL (4.1-5.3); Red Cell Distribution Width 13.3 % (12.1-15.1); White Blood Count 7.9 10^3/uL (4.0-10.0)
[2022-03-03 13:22] VITALS: BP 152/81; PULSE 60; RESP 16; O2SAT 99
== END 2022-03-03 13:35 | disposition home or self-care (01) ==
PROVIDERS: PCP Family Medicine; Visit Provider Internal Medicine Cardiovascular Disease
PROC: (CPT 93312; principal; 2022-03-03 12:00)
DX: D72.829 Elevated white blood cell count, unspecified (principal); R50.9 Fever, unspecified; Z95.2 Presence of prosthetic heart valve; I11.0 Hypertensive heart disease with heart failure; I50.22 Chronic systolic (congestive) heart failure; E78.5 Hyperlipidemia, unspecified
CPT/HCPCS: 85025; 93312; 93320; 93325; J2704; J7030

== ENCOUNTER → 2022-03-09 14:25 | Outpatient (BNVA) | payer MEDICARE, BC, SELFPAY | PROVIDERS: PCP Family Medicine; Visit Provider Internal Medicine Cardiovascular Disease | DX: R53.83 Other fatigue (principal); I11.0 Hypertensive heart disease with heart failure; I50.22 Chronic systolic (congestive) heart failure; I65.23 Occlusion and stenosis of bilateral carotid arteries; Z95.2 Presence of prosthetic heart valve; I25.10 Atherosclerotic heart disease of native coronary artery without angina pectoris; Z95.1 Presence of aortocoronary bypass graft | CPT/HCPCS: 99214 ==

== ENCOUNTER → 2022-03-15 15:15 | Outpatient (BNVA) | payer MEDICARE, BC, SELFPAY | PROVIDERS: PCP Family Medicine; Visit Provider Urology | DX: N40.1 Benign prostatic hyperplasia with lower urinary tract symptoms (principal); N32.89 Other specified disorders of bladder | CPT/HCPCS: 51798; 52000; 81003; 99213 ==

== ENCOUNTER 2022-03-22 06:51 | Day surgery (SDC) | payer MEDICARE, BC, SELFPAY ==
[2022-03-20 15:15] VITALS: BMI 22.9
[2022-03-22 07:23] VITALS: BP 181/91; PULSE 60; RESP 18; TEMP 36.8; O2SAT 98
[2022-03-22] MEDS: sodium chloride 0.9% 1,000 ML 30 ML IV (07:32)
--- NOTE | 2022-03-22 07:55 | ANES.PREANE2 ---
Pre-Anesthetic Assessment Height/Weight: Height 1.75 m Weight 72.575 kg Temp Pulse Resp BP Pulse Ox O2 Del Method 98.3 F 60 18 181/91 98 03/22/22 07:23 03/22/22 07:23 03/22/22 07:23 03/22/22 07:23 03/22/22 07:23 03/22/22 07:23 Preop Diagnosis: Bioprosthetic aortic valve/unexplained fever/rule out endocarditis Operation Date: 03/22/22 08:30 Proposed Procedures p EGD(Not Applicable) - Osvaldo Buck DO Familial anesthetic complications: none Was Beta Pia taken within 24 hours: N/A Was Clonidine taken within 24 hours: N/A Last intake: Intake Last Liquid Date 03/20/22 Last Liquid Time 20:00 Last Solid Date 03/21/22 Last Solid Time 19:30 Social No tobacco Exam alert and oriented x 3 Airway Submandibular: within normal limits Cervical ROM: within normal limits Mallampati: Class III Dentition: full History/ROS No significant history except as noted Pulmonary None reported CV/HEM Coronary Artery Disease (stents) and Hypertension aortic valve replacement x2 None reported Hepatic None reported GI Gastroesophageal Reflux Disease Metabolic Hyperlipidemia Neuropsych None reported Anesthetic Plan ASA status: 3 Anesthesia: Anesthesia Evaluation and MAC Medications/Allergies Home Medications Medication Instructions Recorded Confirmed Last Taken Type nitroglycerin 0.4 mg sublingual 0.4 mg sublingual Q5M PRN Chest 09/18/19 03/20/22 Unknown History tablet (Nitrostat) Pain silodosin 8 mg capsule (Rapaflo) 8 mg PO BEDTIME 09/18/19 03/20/22 03/02/22 History trazodone 100 mg tablet 100 mg PO BEDTIME 09/18/19 03/20/22 03/02/22 History metoprolol tartrate 50 mg tablet 50 mg PO BID 03/09/21 03/20/22 03/03/22 History potassium chloride 20 mEq 10 meq PO DAILY PRN with furosemide 03/09/21 03/20/22 Unknown History tablet,extended release(part/cryst) clopidogrel 75 mg tablet 75 mg PO DAILY #90 tabs 08/15/21 03/20/22 03/17/22 Rx furosemide 40 mg tablet 40 mg PO DAILY PRN Edema 09/07/21 03/20/22 Unknown History gabapentin 300 mg capsule 300 mg PO TID 09/07/21 03/20/22 03/03/22 History atorvastatin 40 mg tablet 40 mg PO BEDTIME 02/08/22 03/20/22 03/02/22 History cyclobenzaprine 10 mg tablet 10 mg PO DAILY PRN Muscle Spasm 02/08/22 03/20/22 03/02/22 History ipratropium bromide 21 mcg (0.03 2 spray intranasal TID PRN Nasal 02/08/22 03/20/22 03/03/22 History %) nasal spray Congestion losartan 100 mg tablet 50 mg PO DAILY #1 tab 02/11/22 03/20/22 03/02/22 Rx omeprazole 20 mg capsule,delayed 20 mg PO BID 02/28/22 03/20/22 03/02/22 History release Allergies Allergy/AdvReac Type Severity Reaction Status Date / Time Penicillins Allergy unknown Verified 03/15/22 15:33 Sulfa (Sulfonamide Allergy unknown Verified 03/15/22 15:33 Antibiotics) Current Medications Generic Name Dose Route Start Last Admin Trade Name Freq PRN Reason Stop Dose Admin Sodium Chloride 1,000 mls @ 30 mls/hr 03/22/22 07:30 03/22/22 07:32 Sodium Chloride 0.9% IV 03/23/22 07:29 30 mls/hr .Q24H RONI Administration PFSH Anesthesia Medical History Atherosclerotic heart disease of [place] coronary artery without angina pectoris Bilateral carotid artery stenosis BPH loc w urin obs/LUTS C. difficile diarrhea Chronic systolic heart failure Congestive heart failure Dyslipidemia (high LDL; low HDL) Hypertension Peripheral neuropathy Surgical History Aortic valve replaced History of cataract extraction History of colonoscopy Hx of CABG Family History Father , at age 92 CAD (coronary artery disease) Diabetes Sister Cancer Chronic kidney disease (CKD) Diabetes Lung disease Brother Diabetes Mother , at age 72 Lung disease Other Hyperlipidemia Hypertension Denies family history of Clotting disorder Dementia Suicide Anesthesia complication Bleeding disorder Stroke Social History Smoking and tobacco status: never smoked Alcohol intake: never Marital status: Current occupational status: retired History of recent travel: No Data Anesthesia Cardiac Studies: Echocardiogram 02/09/22 Echocardiogram Ultrasound 09/22/20 Transesophageal Echocardiogram 03/03/22 Sestamibi Stress Test (Cardiology) 11/05/20
--- NOTE | 2022-03-22 08:48 | W.PM.OPSUD ---
Surgery/Procedure H&P Update DATE OF PROCEDURE: March 22, 2022 DATE H&P PERFORMED: 02/21/22 PREOP DIAGNOSIS: epigastric pain PLANNED PROCEDURE: Operation Date: 03/22/22 08:30 Proposed Procedures p EGD(Not Applicable) - Osvaldo Buck DO
[2022-03-22 09:05] VITALS: BP 129/67; PULSE 64; RESP 16; TEMP 36.2; O2SAT 98
[2022-03-22 09:14] VITALS: BP 133/71; PULSE 63; RESP 16; O2SAT 97
--- NOTE | 2022-03-22 14:59 | ANE.PACU2 ---
Inpatient post-anesthesia follow up: Airway intact: Yes Vital signs: Temperature 97.1 F Pulse Rate 63 Respiratory Rate 16 Blood Pressure 133/71 Pulse Oximetry 97 Oxygen Delivery Me thod Room Air Oxygen Flow Rate Fraction of Inspir ed Oxygen Hydration adequate: Yes Nausea and vomiting: No Pain level: 1 Mental status: Baseline
== END 2022-03-22 09:47 | disposition home or self-care (01) ==
PROVIDERS: PCP Family Medicine; Visit Provider Surgery
PROC: 0DJ08ZZ Inspection of Upper Intestinal Tract, Via Natural or Artificial Opening Endoscopic (ICD-10-PCS; CPT 43235; principal; 2022-03-22 08:30)
DX: R13.10 Dysphagia, unspecified (principal); K29.50 Unspecified chronic gastritis without bleeding; B96.81 Helicobacter pylori [H. pylori] as the cause of diseases classified elsewhere; I25.10 Atherosclerotic heart disease of native coronary artery without angina pectoris; Z95.5 Presence of coronary angioplasty implant and graft; K21.9 Gastro-esophageal reflux disease without esophagitis; E78.5 Hyperlipidemia, unspecified; N40.1 Benign prostatic hyperplasia with lower urinary tract symptoms; N13.8 Other obstructive and reflux uropathy; I11.0 Hypertensive heart disease with heart failure; I50.22 Chronic systolic (congestive) heart failure
CPT/HCPCS: 43239; 88305; 88342; J2704; J7030

== ENCOUNTER → 2022-04-10 15:44 | Outpatient (BNVA) | payer MEDICARE, BC, SELFPAY | PROVIDERS: PCP Family Medicine; Visit Provider Surgery | DX: K29.70 Gastritis, unspecified, without bleeding (principal); B96.81 Helicobacter pylori [H. pylori] as the cause of diseases classified elsewhere | CPT/HCPCS: 99212 ==

== ENCOUNTER 2022-04-19 11:07 | Outpatient (CLI) | payer MEDICARE, BC, SELFPAY | END 2022-04-19 11:08 | disposition home or self-care (01) | LOC: RT 11:10 | PROVIDERS: PCP Family Medicine; Visit Provider Family Medicine | DX: R53.83 Other fatigue (principal) | CPT/HCPCS: 94060; 94726; 94729; J7613 ==

== ENCOUNTER 2022-05-02 10:04 | Outpatient (CLI) | payer MEDICARE, BC, SELFPAY ==
--- NOTE | 2022-05-02 10:00 | USCV_ITS ---
Morris Sandoval Age: 77 Gender: M : 1945 Exam Date: 05/02/2022 10:31 Ordering Phys: Lane Hauser MD ([email or web address]) Technologist: CT Exam Location: [facility] [place] Indication: stenosis Risk Factors: Previous Vascular Surgery: Right Brachial BP: / Left Brachial BP: / Right Left Velocity (cm/s) Spectral Plaque Velocity (cm/s) Spectral Plaque Syst/Diast Broadening Syst/Diast Broadening 95.90/ 22.10 Prox CCA 151.10/ 27.00 118.00/28.70 Mid CCA 107.60/ 17.90 80.90/ 20.80 Distal CCA 100.00/ 18.60 236.90/69.00 Prox ICA 73.60 / 21.90 218.50/59.80 Mid ICA 96.40 / 24.50 158.70/48.00 Distal ICA 70.00 / 17.20 88.30 ECA 181.70 2.01 ICA/CCA 0.64 Antegrade Vertebral Antegrade 78.30/ 24.30 cm/s 91.00/ 22.70 cm/s Bi Subclavian Bi 95.90 57.20 FINDINGS stenosis on rt, diffuse calcified plq noted bilaterally, this is irregular in appearance Moderate to heavy heterogenous irregular plaques at the bifurcations and proximal internal carotid artery Mild to moderate heterogenous plaques at the left bifurcation and proximal internal carotid artery Intimal thickening and minimal plaques in the common carotid arteries bilaterally Elevated Doppler flow velocities with the flow turbulence at the right bifurcation proximal ICA CONCLUSIONS Moderate to heavy heterogenous irregular plaques at the bifurcations and proximal internal carotid artery with a Doppler features, suggesting 50 to 69% stenosis. Mild to moderate heterogenous plaques at the left bifurcation and proximal internal carotid artery with the Doppler features suggesting less than 50% stenosis. Intimal thickening and minimal plaques on the common carotid arteries bilaterally. Compared to the study from 11/08/2020, there may not be a significant change Dr Lane Hauser MD [facility] (Electronically Signed) Final Date: 04 May 2022 08:06 S
== END 2022-05-02 10:05 | disposition home or self-care (01) ==
LOC: RAD 10:07
PROVIDERS: PCP Family Medicine; Visit Provider Internal Medicine Cardiovascular Disease
DX: I65.23 Occlusion and stenosis of bilateral carotid arteries (principal); I77.9 Disorder of arteries and arterioles, unspecified
CPT/HCPCS: 93880

== ENCOUNTER → 2022-05-04 10:13 | Outpatient (BNVA) | payer MEDICARE, BC, SELFPAY | PROVIDERS: PCP Family Medicine; Visit Provider Internal Medicine Pulmonary Disease | DX: J44.9 Chronic obstructive pulmonary disease, unspecified (principal); J98.4 Other disorders of lung; J84.9 Interstitial pulmonary disease, unspecified; R04.2 Hemoptysis; I50.22 Chronic systolic (congestive) heart failure; J92.0 Pleural plaque with presence of asbestos; Z87.891 Personal history of nicotine dependence | CPT/HCPCS: 36415; 84182; 85651; 86225; 86235; 99214 ==

== ENCOUNTER 2022-05-22 09:36 | Outpatient (CLI) | payer MEDICARE, OTHER, SELFPAY ==
--- NOTE | 2022-05-22 | ECG_ITS ---
[facility] Test Date: 2022-05-22 Pat Name: Morris Sandoval Department: Room: Gender: Male Supervisor Final: : 1945 Requested By: Lane Hauser Order Number: [id number] Costa MD: Yana Doty M.D. Interpretive Statements NAME OF STUDY: LEXISCAN SESTAMIBI STRESS TEST INDICATION: Exertional shortness of breath PROCEDURE: At the baseline, the blood pressure was 141/75 mm Hg with a heart rate of 57 bpm. The electrocardiogram showed sinus bradycardia saúl PAC, normal axis with normal ST and T's. The Lexiscan was infused over a period of 20 seconds. A total of 0.4 milligrams of Lexiscan was infused. The stress phase was continued for a total of 5 minutes. Heart rate at the end of the stress phase was 67 bpm with a blood pressure of 143/79 mm Hg. The EKG at the peak infusion revealed no significant ST-T wave changes. Sestamibi was injected 20 seconds after the Lexiscan infusion. Blood pressure at the end of the recovery phase was 144/80 mm Hg with a heart rate of 66 beats per minute. CONCLUSION: 1. No significant EKG changes with the LexiScan infusion. 2. No LexiScan induced chest pain or cardiac arrhythmia. 3. Normal blood pressure and heart rate response. 4. Sestamibi/sestamibi perfusion scan pending; see separate report. Electronically Signed On 06-06-2022 12:54:54 CAR DRYER by Yana Doty M.D. [id number]
[2022-05-22 10:06] VITALS: BMI 22.9
--- NOTE | 2022-05-22 10:07 | NMCV_ITS ---
NM elan perf SPECT r/s* [id number] Morris Sandoval Age: 77 Gender: M : 1945 Exam Date: 05/22/2022 10:59 Ordering Phys: Lane Hauser MD ([email or web address]) Technologist: CARMEN Renteria Exam Location: [facility] Indications: CORONARY ANGIOPLASTY STATUS STRESS TEST Please see separate stress test report in [facility] for full findings IMAGE PROTOCOL Rest/Stress 1 Lexiscan Day Radiopharmaceutical Dose (mCi) Administration Site Administered by Rest: Tc-99m 10.4 IV CARMEN Bill Sestamibi Stress:Tc-99m 32.1 IV CARMEN Bill Sestamibi Rest: 22-May-2022 60 Discovery 630 Stress: 22-May-2022 30 Discovery 630 0.4mg Lexiscan. Images obtained in supine and prone position. SPECT RESULTS Technical Quality: Excellent Raw Data Analysis: Normal Image Corrections: No attenuation or motion correction applied Summed Stress Score: 0 Summed Rest Score: 0 Summed Difference Score: 0 PERFUSION FINDINGS Fairly uniform myocardial tracer uptake with no significant perfusion abnormalities. FUNCTIONAL RESULTS (calculated via Gated SPECT) Stress Image LV EF (%): 66 Stress EDV (mL):91 TID: 1.05 Stress ESV (mL):31 FUNCTIONAL FINDINGS: Segmental wall motion analysis revealing no gross wall motion normalities IMPRESSIONS 1. Unremarkable Myocardial perfusion imaging 2. Normal LV ejection fraction of 66%. 3. LV wall motion analysis revealing no gross wall motion abnormalities. 4. Normal LV volume Low probability for coronary ischemia, based on the above findings. Essentially unchanged from the previous study on 11/05/[address] Hauser MD [facility] (Electronically Signed) Final Date: 22 May 2022 17:18 S
[2022-05-22] MEDS: regadenoson 0.4 Mg/5 ml Syringe IVP (12:10)
[2022-05-22 12:33] VITALS: BP 144/80; PULSE 67
== END 2022-05-22 09:37 | disposition home or self-care (01) ==
PROVIDERS: PCP Family Medicine; Visit Provider Internal Medicine Cardiovascular Disease
DX: Z98.61 Coronary angioplasty status (principal)
CPT/HCPCS: 36415; 78452; 93017; 96374; A9500; J2785

== ENCOUNTER 2022-05-25 15:18 | Outpatient (CLI) | payer MEDICARE, OTHER, SELFPAY ==
[2022-05-25 16:19] LABS: Erythrocyte Sedimentation Rate 3 mm/hr (0-10)
[2022-05-25 16:55] LABS: Creatine Phosphokinase 64 U/L (39-308)
[2022-05-26 13:09] LABS: Aldolase 4.2 U/L (< OR = 8.1)
== END 2022-05-25 15:19 | disposition home or self-care (01) ==
PROVIDERS: PCP Family Medicine; Visit Provider Internal Medicine Rheumatology
DX: M60.9 Myositis, unspecified (principal)
CPT/HCPCS: 36415; 82085; 82550; 85651; 86140

== ENCOUNTER → 2022-07-05 11:10 | Outpatient (BNVA) | payer MEDICARE, OTHER, SELFPAY | PROVIDERS: PCP Family Medicine; Visit Provider Internal Medicine Pulmonary Disease | DX: J98.4 Other disorders of lung (principal); Z87.891 Personal history of nicotine dependence; I50.22 Chronic systolic (congestive) heart failure; J92.0 Pleural plaque with presence of asbestos | CPT/HCPCS: 99214 ==

== ENCOUNTER → 2022-07-13 08:21 | Outpatient (BNVA) | payer MEDICARE, OTHER, SELFPAY | PROVIDERS: PCP Family Medicine; Visit Provider Internal Medicine Rheumatology | DX: M62.81 Muscle weakness (generalized) (principal); Z79.899 Other long term (current) drug therapy; J98.4 Other disorders of lung; R76.0 Raised antibody titer; J92.0 Pleural plaque with presence of asbestos | CPT/HCPCS: 36415; 80076; 82085; 82550; 82565; 83520; 85025; 99204 ==

== ENCOUNTER 2022-07-14 10:43 | Outpatient (CLI) | payer MEDICARE, OTHER, SELFPAY ==
--- NOTE | 2022-07-14 11:00 | CT_ITS ---
WS: [id number] CT CHEST CT-HIGH RESOLUTION, NONCONTRAST. HISTORY: Restrictive lung disease. Short of breath for 4 months. Technique: High-resolution chest CT is performed in inspiration, expiration, supine and prone bhavin tejeda. All CT scans at [facility] use at least one of these dose optimization techniques: automated exposure control; mA and/or kV adjustment per patient size (includes targeted exams where dose is mat ched to clinical indication); or iterative reconstruction. DLP: 1249.67 mGy.cm COMPARISON: 02/08/2022 Findings: Mild biapical pleural thickening, greatest on the RIGHT similar to the prior study. Lung vo lumes appear normal. Linear areas of atelectasis at the lung bases but greatest at the LEFT lung base with adjacent pleural thickening. During prone positioning there is no significant or obvious improv ement in the areas of atelectasis. During expiration no mosaic attenuation. There is very mild bronch ial thickening but no evidence for bronchiectasis. No honeycombing. Partially calcified pleural nodules in the RIGHT upper lung field. There is a short segment calcifica tions. No mass. Heavy calcification within the thoracic aorta. No aneurysm. Prior CABG. Normal size pulmonary artery. Extensive calcification in the [place] coronary arteries. There are small benign appearing mediastina l and hilar lymph nodes. No adrenal enlargement. CT/CT chest wo con [id number] Impression: 1. Lung volumes appear normal during inspiration. 2. There is very little decrease in size of the lungs during expiration. 3. Linear areas of subsegmental atelectasis greatest in the LEFT lower lobe wi th adjacent pleural thickening. No improvement in atelectasis during expiration or prone positioning. 4. Short segment pleural plaques in the RIGHT upper chest. 5. No honeycombing or bronchiectasis. 6. Prior CABG with severe coronary artery calcifications.
== END 2022-07-14 10:44 | disposition home or self-care (01) ==
PROVIDERS: PCP Family Medicine; Visit Provider Internal Medicine Pulmonary Disease
DX: J98.4 Other disorders of lung (principal); Z87.891 Personal history of nicotine dependence
CPT/HCPCS: 71250; 99214

== ENCOUNTER → 2022-09-06 09:29 | Outpatient (BNVA) | payer MEDICARE, OTHER, SELFPAY | PROVIDERS: PCP Family Medicine; Visit Provider Internal Medicine Rheumatology | DX: M62.81 Muscle weakness (generalized) (principal); R76.0 Raised antibody titer; Z79.899 Other long term (current) drug therapy; J98.4 Other disorders of lung; J92.0 Pleural plaque with presence of asbestos | CPT/HCPCS: 36415; 80061; 82085; 82550; 85651; 86140; 99214 ==

== ENCOUNTER → 2022-09-25 14:04 | Outpatient (BNVA) | payer MEDICARE, OTHER, SELFPAY | PROVIDERS: PCP Family Medicine; Visit Provider Internal Medicine Cardiovascular Disease | DX: I25.10 Atherosclerotic heart disease of native coronary artery without angina pectoris (principal); E78.5 Hyperlipidemia, unspecified; I11.0 Hypertensive heart disease with heart failure; I50.22 Chronic systolic (congestive) heart failure; Z95.2 Presence of prosthetic heart valve; I65.23 Occlusion and stenosis of bilateral carotid arteries; Z87.891 Personal history of nicotine dependence | CPT/HCPCS: 99214 ==

== ENCOUNTER 2022-09-26 06:00 | Outpatient (RCR) | payer MEDICARE, OTHER, SELFPAY | END 2022-10-11 23:59 | disposition home or self-care (01) | LOC: SPT 06:00 | PROVIDERS: PCP Family Medicine; Visit Provider Internal Medicine Rheumatology | DX: M62.81 Muscle weakness (generalized) (principal) | CPT/HCPCS: 97110; 97161; 97530 ==

== ENCOUNTER → 2022-10-02 09:47 | Outpatient (BNVA) | payer MEDICARE, OTHER, SELFPAY | PROVIDERS: PCP Family Medicine; Visit Provider Specialist | DX: G62.89 Other specified polyneuropathies (principal) | CPT/HCPCS: 95913 ==

== ENCOUNTER 2022-10-12 06:00 | Outpatient (RCR) | payer MEDICARE, OTHER, SELFPAY | END 2022-11-02 23:59 | disposition home or self-care (01) | LOC: SPT 06:00 | PROVIDERS: PCP Family Medicine; Visit Provider Internal Medicine Rheumatology | DX: M62.81 Muscle weakness (generalized) (principal) | CPT/HCPCS: 97110; 97530 ==

== ENCOUNTER 2022-10-19 13:44 | Outpatient (RCR) | payer MEDICARE, OTHER, SELFPAY | END 2022-11-10 23:59 | disposition home or self-care (01) | LOC: PULRHB 13:44 | PROVIDERS: PCP Family Medicine; Visit Provider Internal Medicine Pulmonary Disease | DX: J44.9 Chronic obstructive pulmonary disease, unspecified (principal); U09.9 Post COVID-19 condition, unspecified | CPT/HCPCS: G0237; G0238 ==

== ENCOUNTER 2022-11-11 06:00 | Outpatient (RCR) | payer MEDICARE, OTHER, SELFPAY | END 2022-12-11 23:59 | disposition home or self-care (01) | LOC: PULRHB 06:00 | PROVIDERS: PCP Family Medicine; Visit Provider Internal Medicine Pulmonary Disease | DX: J44.9 Chronic obstructive pulmonary disease, unspecified (principal); U09.9 Post COVID-19 condition, unspecified | CPT/HCPCS: G0237; G0238 ==

== ENCOUNTER 2022-12-12 06:00 | Outpatient (RCR) | payer MEDICARE, OTHER, SELFPAY | END 2023-01-11 23:59 | disposition home or self-care (01) | LOC: PULRHB 06:00 | PROVIDERS: PCP Family Medicine; Visit Provider Internal Medicine Pulmonary Disease | DX: J44.9 Chronic obstructive pulmonary disease, unspecified (principal); U09.9 Post COVID-19 condition, unspecified | CPT/HCPCS: G0237; G0238; G0239 ==

== ENCOUNTER → 2022-12-14 14:37 | Outpatient (BNVA) | payer MEDICARE, OTHER, SELFPAY | PROVIDERS: PCP Family Medicine; Visit Provider Internal Medicine Rheumatology | DX: M62.81 Muscle weakness (generalized) (principal); Z79.899 Other long term (current) drug therapy; J98.4 Other disorders of lung; R76.0 Raised antibody titer; J92.0 Pleural plaque with presence of asbestos | CPT/HCPCS: 36415; 80076; 82085; 82550; 82565; 85025; 85651; 86140; 99214 ==

== ENCOUNTER 2023-01-12 06:00 | Outpatient (RCR) | payer MEDICARE, OTHER, SELFPAY | END 2023-02-10 23:59 | disposition home or self-care (01) | LOC: PULRHB 06:00 | PROVIDERS: PCP Family Medicine; Visit Provider Internal Medicine Pulmonary Disease | DX: J44.9 Chronic obstructive pulmonary disease, unspecified (principal); U07.1 COVID-19 | CPT/HCPCS: G0239 ==

== ENCOUNTER → 2023-02-07 14:37 | Outpatient (BNVA) | payer MEDICARE, OTHER, SELFPAY | PROVIDERS: PCP Family Medicine; Visit Provider Internal Medicine Pulmonary Disease | DX: G20 Parkinson's disease (principal); J98.4 Other disorders of lung; I50.22 Chronic systolic (congestive) heart failure; J92.0 Pleural plaque with presence of asbestos; Z87.891 Personal history of nicotine dependence | CPT/HCPCS: 99214 ==

== ENCOUNTER → 2023-03-01 13:53 | Outpatient (BNVA) | payer MEDICARE, OTHER, SELFPAY | PROVIDERS: PCP Family Medicine; Visit Provider Specialist | DX: G62.89 Other specified polyneuropathies (principal); M62.81 Muscle weakness (generalized); R53.83 Other fatigue | CPT/HCPCS: 95860; 82607; 82746; 83516; 83519; 84439; 84443; 86334; 99205 ==

== ENCOUNTER → 2023-03-22 13:47 | Outpatient (BNVA) | payer MEDICARE, OTHER, SELFPAY | PROVIDERS: PCP Family Medicine; Visit Provider Internal Medicine Cardiovascular Disease | DX: I25.10 Atherosclerotic heart disease of native coronary artery without angina pectoris (principal); E78.5 Hyperlipidemia, unspecified; I11.0 Hypertensive heart disease with heart failure; I50.22 Chronic systolic (congestive) heart failure; Z95.2 Presence of prosthetic heart valve; I65.23 Occlusion and stenosis of bilateral carotid arteries; Z87.891 Personal history of nicotine dependence; Z95.1 Presence of aortocoronary bypass graft | CPT/HCPCS: 99214 ==

== ENCOUNTER → 2023-04-19 12:40 | Outpatient (BNVA) | payer MEDICARE, OTHER, SELFPAY | PROVIDERS: PCP Family Medicine; Visit Provider Internal Medicine Rheumatology | DX: M62.81 Muscle weakness (generalized) (principal); J98.4 Other disorders of lung; R76.0 Raised antibody titer; J92.0 Pleural plaque with presence of asbestos | CPT/HCPCS: 36415; 82085; 82550; 99214 ==

== ENCOUNTER 2023-05-14 17:22 | Emergency (ER) | payer MEDICARE, OTHER, SELFPAY ==
[2023-05-14 17:41] VITALS: BP 150/86; PULSE 85; RESP 18; TEMP 36.8; O2SAT 95; BMI 24.3
--- NOTE | 2023-05-14 17:52 | XRR_ITS ---
PROCEDURE INFORMATION: Exam: XR Chest Exam date and time: 05/14/2023 6:06 PM Age: 78 years old Clinical indication: Fever and shortness of breath; Prior surgery; Surgery date: 6+ months; Surgery type: Open heart; Additional info: SOB TECHNIQUE: Imaging protocol: Radiologic exam of the chest. Views: 1 view. COMPARISON: CT chest con [id number] 07/14/2022 11:20 AM FINDINGS: Lungs: Chronic biapical fibrotic changes more pronounced on the right, stable. No acute infiltrates or overt CHF. Pleural spaces: Scattered nodular calcified pleural plaques consistent with prior asbestos exposure unchanged. Heart/Mediastinum: Heart is borderline enlarged. Bones/joints: Evidence of prior median sternotomy. No acute bony abnormalities. XR/XR chest 1V portable [id number] IMPRESSION: Stable chest. No active disease.
--- NOTE | 2023-05-14 19:07 | W.ED.URI ---
HPI - URI/Sore Throat General: Chief Complaint: Upper Respiratory Infection Stated Complaint: fever, chills Time Seen by Provider: 05/14/23 18:45 Source: patient Mode of arrival: ambulatory History of Present Illness: 78-year-old male states that over the last 4 days he has had cough congestion runny nose body aches and a fever. States his has had similar symptoms states he did have a temp of 101 at home he did take Tylenol he is afebrile here he is in no distress pulse ox here is normal. He denies any chest pain denies any productive cough Associated symptoms: Reports chills and fever(s); Deny abdominal pain, chest pain, diarrhea, headache(s), nausea or vomiting Review of Systems Const: Reports: fever(s), chills and body aches; Denies: change in appetite Eyes: Denies: blurry vision or eye discomfort ENMT: Reports: throat pain; Denies: dental pain Card: Denies: chest pain Resp: Reports: non-productive cough; Denies: dyspnea GI: Denies: abdominal pain, nausea, vomiting or diarrhea : Denies: dysuria Musc: Denies: neck pain or back pain Skin/Breast: Denies: rash Neuro: Denies: headache(s) PFSH ED PFSH: Medical History Neuropathy GERD (gastroesophageal reflux disease) Raised antibody titer Generalized muscle weakness Improving Helicobacter pylori gastritis BPH loc w urin obs/LUTS C. difficile diarrhea Dyslipidemia (high LDL; low HDL) Chronic systolic heart failure Atherosclerotic heart disease of [place] coronary artery without angina pectoris Hypertension Bilateral carotid artery stenosis Peripheral neuropathy Congestive heart failure Surgical History History of colonoscopy Hx of CABG Aortic valve replaced History of cataract extraction Family History Father , at age 92 CAD (coronary artery disease) Diabetes Sister Cancer Chronic kidney disease (CKD) Diabetes Lung disease Brother Diabetes Mother , at age 72 Lung disease Other Hyperlipidemia Hypertension Denies family history of Clotting disorder Dementia Suicide Anesthesia complication Bleeding disorder Stroke Social History Smoking and tobacco/nicotine status: former use of tobacco/nicotine Quit status (tobacco/nicotine): has quit using Year quit tobacco: 1964 Former quit date comment: 1 ppd X 2 years Alcohol intake: never Substance/Drug Use: never Marital status: Current occupational status: retired Physical Exam Const: COMMON NORMALS: no acute distress, patient oriented x3 and healthy appearing HENMT: COMMON NORMALS: normocephalic and atraumatic HEAD & SCALP: normocephalic and atraumatic Eye: COMMON NORMALS: Equal, round and reactive pupils present and EOMs intact bilaterally PUPIL: Yes Equal, round and reactive pupils present Neck/C-Spine: COMMON NORMALS: full ROM and supple Chest: COMMONS NORMALS: normal inspection of the chest and normal palpation of entire chest wall Resp: COMMON NORMALS: normal respiratory effort, No retractions, No use of accessory muscles and clear to auscultation bilaterally AUSCULTATION: clear to auscultation bilaterally Cardio: COMMON NORMALS: regular rate, regular rhythm and No murmurs present (Cardio) RATE: regular rate RHYTHM: regular rhythm GI: COMMON NORMALS: Normal to inspection, nondistended, normoactive bowel sounds present, Soft to palpation, non-tender and no masses PALPATION: Yes Soft to palpation Extremity: COMMON NORMALS: normal to inspection and full ROM Neuro: COMMON NORMALS: patient oriented x3, moves all extremities and no focal motor deficits Psych: COMMON NORMALS: mental status grossly normal, Normal thought process present and cooperative THOUGHT PROCESS: Normal thought process present Skin: COMMON NORMALS: no rashes or lesions noted and no wounds GENERAL SKIN EXAM: no rashes or lesions noted Course Vital Signs: Vital signs: Vital Signs Temperature 98.5 F 05/14/23 19:12 Pulse Rate 80 05/14/23 19:12 Respiratory Rate 16 05/14/23 19:12 Blood Pressure 169/94 05/14/23 19:12 Pulse Oximetry 98 05/14/23 19:12 Oxygen Delivery Me thod Room Air 05/14/23 19:12 MDM - URI/Sore Throat Medical Decision Making Patient presents here with cough congestion did test positive for COVID x-ray here is normal he is in no distress we will prescribe him Paxil bid he is stable for discharge return if worsening. Medical Records I reviewed the patient's medical records. Lab Data I reviewed the patient's lab results. Radiology Impressions Chest X-Ray 05/14/23 17:52 IMPRESSION: Stable chest. No active disease. Laboratory Results Influenza Type A Ag negative (Negative) 05/14/23 19:09 Influenza Type B Ag negative (Negative) 05/14/23 19:09 SARS-CoV-2 Ag (Rapid) positive (Negative) H 05/14/23 19:09 All radiology interpretation(s) finalized by discharge Discharge Plan Discharge Patient Disposition: Home Clinical Impression: COVID-19 Condition: Stable Prescriptions: New Paxlovid 300 mg (150 mg x 2)-100 mg tablets,dose pack See Rx Instructions .ROUTE .COMPLEX Qty: 30 0RF Rx Instructions: take TWO 150 mg tablets of nirmatrelvir with ONE 100 mg tablet of ritonavir twice daily for 5 days No Action silodosin [Rapaflo] 8 mg capsule 8 mg PO BEDTIME nitroglycerin [Nitrostat] 0.4 mg tablet, sublingual 0.4 mg SUBLINGUAL Q5M PRN (Reason: Chest Pain) trazodone 100 mg tablet 100 mg PO BEDTIME furosemide 40 mg tablet 40 mg PO DAILY PRN (Reason: Edema) gabapentin 300 mg capsule 300 mg PO TID potassium chloride 20 mEq tablet,ER particles/crystals 10 meq PO DAILY PRN (Reason: with furosemide) metoprolol tartrate 50 mg tablet 25 mg PO BID lidocaine HCl 2 % jelly 1 applic intra-urethral ONCE Qty: 1 0RF ferrous sulfate [Feosol] 325 mg (65 mg iron) tablet 325 mg PO DAILY clopidogrel 75 mg tablet 75 mg PO DAILY Qty: 90 3RF Hold Instructions: Resume on 03/24/22. albuterol sulfate [Ventolin HFA] 90 mcg/actuation HFA aerosol inhaler 1 inh inhalation QID PRN (Reason: shortness of breath or wheezing) Qty: 8.5 3RF atorvastatin 40 mg tablet 40 mg PO BEDTIME cyclobenzaprine 10 mg tablet 10 mg PO DAILY PRN (Reason: Muscle Spasm) ipratropium bromide 21 mcg (0.03 %) spray,non-aerosol 2 spray INTRANASAL TID PRN (Reason: Nasal Congestion) losartan 100 mg tablet 50 mg PO DAILY Qty: 1 0RF omeprazole 20 mg capsule,delayed release(DR/EC) 20 mg PO BID Hold Instructions: Resume on 05/03/22. Discharge Orders: Discharge ED (Routine); Ordered 05/14/23 Ordered By: Sasha Ruiz Referrals: Darleen Pina MD [Primary Care Provider] - 1-3 days Discharge Diet: Advance as tolerated Discharge Activity: Resume usual activity Patient Instructions: COVID-19 (Coronavirus Disease 2019) (ED) Coding Level of Care Code ED Hemodialysis Charge Nurse for Sayra Ku
[2023-05-14 19:12] VITALS: BP 169/94; PULSE 80; RESP 16; TEMP 36.9; O2SAT 98
[2023-05-14 19:40] LABS: Influenza A by IFA negative (Negative); Influenza B by IFA negative (Negative)
[2023-05-14 19:43] LABS: SARS Covid-2 Antigen positive (Negative)
[2023-05-14 19:57] VITALS: BP 139/69; PULSE 80; RESP 16; TEMP 36.9; O2SAT 98
== END 2023-05-14 20:01 | disposition home or self-care (01) ==
PROVIDERS: Emergency Provider Emergency Medicine; PCP Family Medicine
DX: U07.1 COVID-19 (principal); Z79.02 Long term (current) use of antithrombotics/antiplatelets; Z87.891 Personal history of nicotine dependence; E78.5 Hyperlipidemia, unspecified; I11.0 Hypertensive heart disease with heart failure; I50.22 Chronic systolic (congestive) heart failure; I25.10 Atherosclerotic heart disease of native coronary artery without angina pectoris; Z95.1 Presence of aortocoronary bypass graft
CPT/HCPCS: 71045; 87426; 87804; 99284

== ENCOUNTER → 2023-06-15 15:32 | Outpatient (BNVA) | payer MEDICARE, OTHER, SELFPAY | PROVIDERS: PCP Family Medicine; Visit Provider Emergency Medicine | DX: R05.9 Cough, unspecified (principal); J20.8 Acute bronchitis due to other specified organisms; B96.89 Other specified bacterial agents as the cause of diseases classified elsewhere | CPT/HCPCS: 87426 ==

== ENCOUNTER → 2023-06-20 12:56 | Outpatient (BNVA) | payer MEDICARE, OTHER, SELFPAY | PROVIDERS: PCP Family Medicine; Visit Provider Specialist | DX: G20.A1 Parkinson's disease without dyskinesia, without mention of fluctuations (principal); G62.89 Other specified polyneuropathies; M62.81 Muscle weakness (generalized); R53.82 Chronic fatigue, unspecified; Z87.891 Personal history of nicotine dependence | CPT/HCPCS: 99214 ==

== ENCOUNTER 2023-07-13 06:00 | Outpatient (RCR) | payer MEDICARE, OTHER, SELFPAY | END 2023-08-12 23:59 | disposition home or self-care (01) | LOC: PULRHB 06:00 | PROVIDERS: PCP Family Medicine; Visit Provider Internal Medicine Pulmonary Disease | DX: J44.9 Chronic obstructive pulmonary disease, unspecified (principal); U09.9 Post COVID-19 condition, unspecified | CPT/HCPCS: 94625; G0239 ==

== ENCOUNTER → 2023-07-25 11:25 | Outpatient (BNVA) | payer MEDICARE, OTHER, SELFPAY | PROVIDERS: PCP Family Medicine; Visit Provider Specialist | DX: G20.A1 Parkinson's disease without dyskinesia, without mention of fluctuations (principal) | CPT/HCPCS: 99213 ==

== ENCOUNTER → 2023-08-08 14:53 | Outpatient (BNVA) | payer MEDICARE, OTHER, SELFPAY | PROVIDERS: PCP Family Medicine; Visit Provider Internal Medicine Pulmonary Disease | DX: J98.4 Other disorders of lung (principal); R04.2 Hemoptysis; I11.0 Hypertensive heart disease with heart failure; I50.22 Chronic systolic (congestive) heart failure; J92.0 Pleural plaque with presence of asbestos; Z87.891 Personal history of nicotine dependence | CPT/HCPCS: 99214 ==

== ENCOUNTER 2023-08-13 06:00 | Outpatient (RCR) | payer MEDICARE, OTHER, SELFPAY | END 2023-09-11 23:59 | disposition home or self-care (01) | LOC: PULRHB 06:00 | PROVIDERS: PCP Family Medicine; Visit Provider Internal Medicine Pulmonary Disease | DX: J44.9 Chronic obstructive pulmonary disease, unspecified (principal); U09.9 Post COVID-19 condition, unspecified; J84.9 Interstitial pulmonary disease, unspecified | CPT/HCPCS: G0239 ==

== ENCOUNTER 2023-09-12 06:00 | Outpatient (RCR) | payer MEDICARE, OTHER, SELFPAY | END 2023-10-12 23:59 | disposition home or self-care (01) | LOC: PULRHB 06:00 | PROVIDERS: PCP Family Medicine; Visit Provider Internal Medicine Pulmonary Disease | DX: J44.9 Chronic obstructive pulmonary disease, unspecified (principal); U09.9 Post COVID-19 condition, unspecified | CPT/HCPCS: G0239 ==

== ENCOUNTER → 2023-09-27 10:42 | Outpatient (BNVA) | payer MEDICARE, OTHER, SELFPAY | PROVIDERS: PCP Family Medicine; Visit Provider Internal Medicine Cardiovascular Disease | DX: I11.0 Hypertensive heart disease with heart failure (principal); I50.22 Chronic systolic (congestive) heart failure; I65.23 Occlusion and stenosis of bilateral carotid arteries; Z95.2 Presence of prosthetic heart valve; I25.10 Atherosclerotic heart disease of native coronary artery without angina pectoris; E78.5 Hyperlipidemia, unspecified; Z87.891 Personal history of nicotine dependence; Z95.1 Presence of aortocoronary bypass graft | CPT/HCPCS: 99214 ==

== ENCOUNTER → 2023-10-18 12:34 | Outpatient (BNVA) | payer MEDICARE, OTHER, SELFPAY | PROVIDERS: PCP Family Medicine; Visit Provider Internal Medicine Rheumatology | DX: M62.81 Muscle weakness (generalized) (principal); J98.4 Other disorders of lung; R76.0 Raised antibody titer; J92.0 Pleural plaque with presence of asbestos | CPT/HCPCS: 36415; 80076; 82085; 82550; 82565; 85025; 86140; 99214 ==

== ENCOUNTER 2023-11-14 14:45 | Outpatient (RCR) | payer SELFPAY | END 2023-12-12 23:59 | disposition home or self-care (01) | LOC: PULRHB 14:45 | PROVIDERS: PCP Family Medicine; Visit Provider Internal Medicine Pulmonary Disease | DX: J44.9 Chronic obstructive pulmonary disease, unspecified (principal); U09.9 Post COVID-19 condition, unspecified; J84.9 Interstitial pulmonary disease, unspecified ==

== ENCOUNTER 2023-12-13 13:21 | Outpatient (RCR) | payer SELFPAY | END 2024-01-12 23:59 | disposition home or self-care (01) | LOC: PULRHB 13:21 | PROVIDERS: PCP Family Medicine; Visit Provider Internal Medicine Pulmonary Disease | DX: J44.9 Chronic obstructive pulmonary disease, unspecified (principal) ==

== ENCOUNTER → 2024-01-22 13:32 | Outpatient (BNVA) | payer MEDICARE, OTHER, SELFPAY | PROVIDERS: PCP Family Medicine; Visit Provider Specialist | DX: G62.89 Other specified polyneuropathies (principal); M62.81 Muscle weakness (generalized); R53.83 Other fatigue; I50.9 Heart failure, unspecified; G20.A1 Parkinson's disease without dyskinesia, without mention of fluctuations | CPT/HCPCS: 99213 ==

== ENCOUNTER 2024-01-29 08:33 | Outpatient (RCR) | payer SELFPAY | END 2024-02-11 23:59 | disposition home or self-care (01) | LOC: PULRHB 08:33 | PROVIDERS: PCP Family Medicine; Visit Provider Internal Medicine Pulmonary Disease | DX: J44.9 Chronic obstructive pulmonary disease, unspecified (principal); U07.1 COVID-19 ==

== ENCOUNTER 2024-03-04 11:39 | Outpatient (RCR) | payer SELFPAY | END 2024-03-13 23:59 | disposition home or self-care (01) | LOC: PULRHB 11:39 | PROVIDERS: PCP Family Medicine; Visit Provider Internal Medicine Pulmonary Disease | DX: J44.9 Chronic obstructive pulmonary disease, unspecified (principal); U09.9 Post COVID-19 condition, unspecified; J84.9 Interstitial pulmonary disease, unspecified ==

== ENCOUNTER 2024-03-14 14:18 | Outpatient (RCR) | payer SELFPAY | END 2024-04-12 23:59 | disposition home or self-care (01) | LOC: PULRHB 14:18 | PROVIDERS: PCP Family Medicine; Visit Provider Internal Medicine Pulmonary Disease | DX: J44.9 Chronic obstructive pulmonary disease, unspecified (principal); U09.9 Post COVID-19 condition, unspecified ==

== ENCOUNTER → 2024-04-02 15:00 | Outpatient (BNVA) | payer MEDICARE, OTHER, SELFPAY | PROVIDERS: PCP Family Medicine; Visit Provider Internal Medicine Cardiovascular Disease | DX: I11.0 Hypertensive heart disease with heart failure (principal); I50.9 Heart failure, unspecified; I65.23 Occlusion and stenosis of bilateral carotid arteries; Z95.2 Presence of prosthetic heart valve; I25.10 Atherosclerotic heart disease of native coronary artery without angina pectoris | CPT/HCPCS: 99214 ==

== ENCOUNTER 2024-04-16 07:58 | Outpatient (RCR) | payer SELFPAY | END 2024-05-13 23:59 | disposition home or self-care (01) | LOC: PULRHB 07:58 | PROVIDERS: PCP Family Medicine; Visit Provider Internal Medicine Pulmonary Disease | DX: J44.9 Chronic obstructive pulmonary disease, unspecified (principal); U09.9 Post COVID-19 condition, unspecified ==

== ENCOUNTER 2024-05-14 10:47 | Outpatient (RCR) | payer SELFPAY | END 2024-06-13 23:59 | disposition home or self-care (01) | LOC: PULRHB 10:47 | PROVIDERS: PCP Family Medicine; Visit Provider Internal Medicine Pulmonary Disease | DX: J44.9 Chronic obstructive pulmonary disease, unspecified (principal); U09.9 Post COVID-19 condition, unspecified ==

== ENCOUNTER 2024-06-16 15:51 | Outpatient (RCR) | payer SELFPAY | END 2024-07-11 23:59 | disposition home or self-care (01) | LOC: PULRHB 15:51 | PROVIDERS: PCP Family Medicine; Visit Provider Internal Medicine Pulmonary Disease | DX: J44.9 Chronic obstructive pulmonary disease, unspecified (principal); U09.9 Post COVID-19 condition, unspecified ==

== ENCOUNTER → 2024-07-10 11:44 | Outpatient (BNVA) | payer SELFPAY | PROVIDERS: PCP Family Medicine; Visit Provider Family Medicine | DX: Z13.6 Encounter for screening for cardiovascular disorders (principal) | CPT/HCPCS: 80061; 82947; 83036 ==

== ENCOUNTER 2024-07-14 12:56 | Outpatient (RCR) | payer SELFPAY | END 2024-08-11 23:59 | disposition home or self-care (01) | LOC: PULRHB 12:56 | PROVIDERS: PCP Family Medicine; Visit Provider Internal Medicine Pulmonary Disease | DX: J44.9 Chronic obstructive pulmonary disease, unspecified (principal); U09.9 Post COVID-19 condition, unspecified ==

== ENCOUNTER 2024-08-12 08:29 | Outpatient (RCR) | payer SELFPAY | END 2024-09-10 23:59 | disposition home or self-care (01) | LOC: PULRHB 08:29 | PROVIDERS: PCP Family Medicine; Visit Provider Internal Medicine Pulmonary Disease | DX: J44.9 Chronic obstructive pulmonary disease, unspecified (principal); U09.9 Post COVID-19 condition, unspecified | CPT/HCPCS: 93798 ==

== ENCOUNTER 2024-09-11 13:17 | Outpatient (RCR) | payer SELFPAY | END 2024-10-11 23:59 | disposition home or self-care (01) | LOC: PULRHB 13:17 | PROVIDERS: PCP Family Medicine; Visit Provider Internal Medicine Pulmonary Disease | DX: J44.9 Chronic obstructive pulmonary disease, unspecified (principal); U09.9 Post COVID-19 condition, unspecified ==

== ENCOUNTER → 2024-09-30 14:30 | Outpatient (BNVA) | payer MEDICARE, OTHER, SELFPAY | PROVIDERS: PCP Family Medicine; Visit Provider Internal Medicine | DX: I11.0 Hypertensive heart disease with heart failure (principal); I50.23 Acute on chronic systolic (congestive) heart failure; I65.23 Occlusion and stenosis of bilateral carotid arteries; Z95.2 Presence of prosthetic heart valve; I25.10 Atherosclerotic heart disease of native coronary artery without angina pectoris; Z87.891 Personal history of nicotine dependence | CPT/HCPCS: 99214 ==

== ENCOUNTER 2024-10-15 07:46 | Outpatient (RCR) | payer SELFPAY | END 2024-11-10 23:59 | disposition home or self-care (01) | LOC: PULRHB 07:46 | PROVIDERS: PCP Family Medicine; Visit Provider Internal Medicine Pulmonary Disease | DX: J44.9 Chronic obstructive pulmonary disease, unspecified (principal); U09.9 Post COVID-19 condition, unspecified ==

== ENCOUNTER → 2024-10-22 12:46 | Outpatient (BNVA) | payer MEDICARE, OTHER, SELFPAY | PROVIDERS: PCP Family Medicine; Visit Provider Internal Medicine Rheumatology | DX: M62.81 Muscle weakness (generalized) (principal); J98.4 Other disorders of lung; R76.0 Raised antibody titer; J92.0 Pleural plaque with presence of asbestos; Z79.899 Other long term (current) drug therapy; M81.0 Age-related osteoporosis without current pathological fracture | CPT/HCPCS: 36415; 80076; 82085; 82306; 82550; 82565; 85025; 85651; 86140; 99214 ==

== ENCOUNTER 2024-11-10 14:16 | Outpatient (CLI) | payer MEDICARE, OTHER, SELFPAY ==
--- NOTE | 2024-11-10 14:15 | USCV_ITS ---
Morris Sandoval Age: 79 Gender: M : 1945 Exam Date: 11/10/2024 14:29 Ordering Phys: Michael Swanson M.D ([email or web address]) Technologist: Exam Location: [facility] [place] Indication: cp sob BP: 118 / 701 HR: 64 Rhythm: Sinus Technical Quality: Adequate MEASUREMENTS (Male / Female) Normal Values 2D ECHO LV Diastolic Diameter PLAX 4.3 cm 4.2 - 5.9 / 3.9 - 5.3 cm IVS Diastolic Thickness 1.0 cm 0.6 - 1.0 / 0.6 - 0.9 cm IVS Systolic Thickness 1.4 cm LVPW Diastolic Thickness 1.1 cm 0.6 - 1.0 / 0.6 - 0.9 cm LVPW Systolic Thickness 1.4 cm LVOT Diameter 2.0 cm LV Ejection Fraction 2D Teich 53.0 % LV Ejection Fraction MOD 4C 66.2 % LV Ejection Fraction MOD 2C 63.0 % LV Ejection Fraction 2C AL 63.1 % LA Diameter 3.9 cm RA Systolic Volume 4C AL 37.5 ml RA Systolic Volume 4C MOD 36.9 ml Aorta at Sinotubular Diameter 2.6 cm IVC Diameter 1.5 cm M-MODE LA Ao Ratio MM 1.7 AV Cusp Separation MM 1.4 cm DOPPLER AV Peak Velocity 252.0 cm/s LVOT Peak Velocity 80.0 cm/s AV Area Cont Eq vti 1.2 cm squared AV Area Cont Eq pk 1.0 cm squared MV Peak Velocity 192.0 cm/s MV Area PHT 2.9 cm squared Mitral E to A Ratio 2.0 TR Peak Velocity 378.0 cm/s TR Peak Gradient 57.2 mmHg TV Peak E Velocity 182.0 cm/s PV Peak Velocity 114.0 cm/s FINDINGS Left Ventricle Left ventricle is normal size. LV systolic function is normal with EF of 50-55%. Grossly mild hypokinesis. Grade 3 diastolic dysfunction Right Ventricle Normal in size and function Right Atrium Normal in size Left Atrium Normal in size Mitral Valve Mild mitral annular calcification. Mild mitral regurgitation Aortic Valve Possibly bioprosthetic aortic valve is thickened. Mild to moderate aortic stenosis with aortic valve area of 1.17 cm2 and mean gradient of 13 mmHg. DVI is 0.35 Tricuspid Valve Mild tricuspid regurgitation. 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 DVI is 0.35 and is normal Mild tricuspid regurgitation. Moderate pulmonary hypertension Michael Swanson MD (Electronically Signed) Final Date: 22 November 2024 20:33 S
== END 2024-11-10 14:17 | disposition home or self-care (01) ==
LOC: RAD 14:17
PROVIDERS: PCP Family Medicine; Visit Provider Internal Medicine
DX: I35.0 Nonrheumatic aortic (valve) stenosis (principal); R93.1 Abnormal findings on diagnostic imaging of heart and coronary circulation; I34.81 Nonrheumatic mitral (valve) annulus calcification; I34.0 Nonrheumatic mitral (valve) insufficiency; I07.1 Rheumatic tricuspid insufficiency
CPT/HCPCS: 93306

== ENCOUNTER 2024-11-11 11:00 | Outpatient (RCR) | payer SELFPAY | END 2024-12-11 23:59 | disposition home or self-care (01) | LOC: PULRHB 11:00 | PROVIDERS: PCP Family Medicine; Visit Provider Internal Medicine Pulmonary Disease | DX: J44.9 Chronic obstructive pulmonary disease, unspecified (principal); U09.9 Post COVID-19 condition, unspecified ==

== ENCOUNTER 2024-12-12 13:17 | Outpatient (RCR) | payer SELFPAY | END 2025-01-11 23:59 | disposition home or self-care (01) | LOC: PULRHB 13:17 | PROVIDERS: PCP Family Medicine; Visit Provider Internal Medicine Pulmonary Disease | DX: J44.9 Chronic obstructive pulmonary disease, unspecified (principal); U09.9 Post COVID-19 condition, unspecified ==

== ENCOUNTER → 2025-01-13 09:43 | Outpatient (BNVA) | payer MEDICARE, SELFPAY | PROVIDERS: PCP Family Medicine; Visit Provider Specialist | DX: G20.A1 Parkinson's disease without dyskinesia, without mention of fluctuations (principal) | CPT/HCPCS: 99213 ==

== ENCOUNTER 2025-01-13 13:32 | Outpatient (RCR) | payer SELFPAY | END 2025-02-10 23:59 | disposition home or self-care (01) | LOC: PULRHB 13:32 | PROVIDERS: PCP Family Medicine; Visit Provider Internal Medicine Pulmonary Disease | DX: J44.9 Chronic obstructive pulmonary disease, unspecified (principal); U09.9 Post COVID-19 condition, unspecified ==

== ENCOUNTER 2025-02-11 10:34 | Outpatient (RCR) | payer SELFPAY | END 2025-03-13 23:59 | disposition home or self-care (01) | LOC: PULRHB 10:34 | PROVIDERS: PCP Family Medicine; Visit Provider Internal Medicine Pulmonary Disease | DX: J44.9 Chronic obstructive pulmonary disease, unspecified (principal); U09.9 Post COVID-19 condition, unspecified ==

== ENCOUNTER 2025-03-14 13:10 | Outpatient (RCR) | payer SELFPAY | END 2025-04-12 23:59 | disposition home or self-care (01) | LOC: PULRHB 13:10 | PROVIDERS: PCP Family Medicine; Visit Provider Internal Medicine Pulmonary Disease | DX: J44.9 Chronic obstructive pulmonary disease, unspecified (principal); U09.9 Post COVID-19 condition, unspecified ==

== ENCOUNTER → 2025-04-13 09:59 | Outpatient (BNVA) | payer MEDICARE, OTHER, SELFPAY | PROVIDERS: PCP Family Medicine; Visit Provider Internal Medicine | DX: I25.10 Atherosclerotic heart disease of native coronary artery without angina pectoris (principal); Z95.2 Presence of prosthetic heart valve; I11.0 Hypertensive heart disease with heart failure; I50.9 Heart failure, unspecified; I65.23 Occlusion and stenosis of bilateral carotid arteries | CPT/HCPCS: 99214 ==

== ENCOUNTER 2025-04-13 12:13 | Outpatient (RCR) | payer SELFPAY | END 2025-05-13 23:59 | disposition home or self-care (01) | LOC: PULRHB 12:13 | PROVIDERS: PCP Family Medicine; Visit Provider Internal Medicine Pulmonary Disease | DX: I25.10 Atherosclerotic heart disease of native coronary artery without angina pectoris (principal); Z95.2 Presence of prosthetic heart valve; J44.9 Chronic obstructive pulmonary disease, unspecified; U09.9 Post COVID-19 condition, unspecified; J84.9 Interstitial pulmonary disease, unspecified | CPT/HCPCS: 99214 ==